=== PATIENT | female | born 2005 | race African-American/Black ===

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

== ENCOUNTER 2023-05-10 12:08 | Inpatient (IN) | payer MEDICAID ==
[~2023-05-10] VITALS: Ht 160 cm; Wt 50.0 kg
[~2023-05-10 12:08] MED LIST: NIF10C PO
[2023-05-10] MEDS ORDERED: IPRATROPIUM BROM 0.5 MG/2.5ML INH SOL NEB ONE (13:00)
[2023-05-10] MEDS ORDERED: ALBUTEROL SULF 2.5 MG/0.5ML(0.5%) NEB SOLN NEB ONE (13:00)
[2023-05-10] MEDS ORDERED: methylPREDNISolone SOD SUCC 125 MG/2 ML VL IV ONE ×2 (13:00→15:15)
[2023-05-10 13:22] LABS: Basophils # (auto) 0 10 ^3/uL (0-0.2); Basophils % (auto) 0.3 % (0.0-2.0); Eosinophils # (auto) 0.1 10 ^3/uL (0-0.8); Eosinophils % (auto) 0.4 % (0.0-7.0); Hematocrit 39.3 % (36.0-46.0); Hemoglobin 13.5 g/dL (12.2-16.2); Lymphocytes # (auto) 1.1 10 ^3/uL (0.4-5.4); Lymphocytes % (auto) 6.2 % (10.0-50.0); Mean Corpuscular Hemoglobin 28.7 pg (28.0-32.0); Mean Corpuscular Hgb Conc. 34.4 g/dL (32.0-36.0); Mean Corpuscular Volume 83.5 fL (80.0-100.0); Monocytes # (auto) 0.9 10 ^3/uL (0-1.3); Monocytes % (auto) 5.3 % (0.0-12.0); Neutrophils # (auto) 15.4 10 ^3/uL (1.6-8.6); Neutrophils % (auto) 87.8 % (37.0-80.0); Nucleated Red Blood Cells % 0.1 %; Red Blood Cells 4.71 10^6/uL (4.0-5.20); Red Cell Distribution Width 13.2 % (11.8-14.3); White Blood Cell 17.6 10^3/uL (4.4-10.8)
[2023-05-10 13:37] LABS: Albumin 4.2 g/dL (3.4-5.0)
[2023-05-10 13:40] LABS: BUN/Creatinine Ratio 8.6 (10.0-20.0); Bilirubin, Total 0.6 mg/dL (0.2-1.0); Total Protein 8.2 g/dL (6.4-8.2)
[2023-05-10] MEDS ORDERED: cefTRIAXone 1GM/50ML D5W 50 ML IV ONE (15:15)
[2023-05-10] MEDS ORDERED: DOCUSATE SOD 100 MG CAP PO PRN (15:45)
[2023-05-10] MEDS ORDERED: ONDANSETRON HCL 4 MG/2 ML VIAL IV PRN (15:45)
[2023-05-10] MEDS ORDERED: POTASSIUM EFFERVESENT TAB 25 MEQ PO ONE (15:45)
[2023-05-10] MEDS ORDERED: SODIUM CHLORIDE 0.9% 1,000 ML IV ONE (15:45)
[2023-05-10] MEDS ORDERED: MORPHINE SULFATE INJ 2 MG/ml SYRG IV PRN (15:45)
[2023-05-10] MEDS ORDERED: SODIUM CHLORIDE 0.9% 1,000 ML IV SCH (15:45)
[2023-05-10 16:10] VITALS: BP 122/80
[2023-05-10 16:12] LABS: INR 1.06 (0.9-1.15)
[2023-05-10 17:28] LABS: Urine Bacteria NONE SEEN /hpf (None Seen); Urine Blood Negative /uL (Negative); Urine Mucus MODERATE (None Seen); Urine Specific Gravity 1.031 (1.001-1.035); Urine WBC 1 /hpf (0 - 5)
[2023-05-10] MEDS ORDERED: IPRATROPIUM BROM 0.5 MG/2.5ML INH SOL NEB SCH ×2 (18:00)
[2023-05-10] MEDS ORDERED: LEVALBUTEROL HCL 1.25 MG/3 ML NEB NEB SCH (18:00)
== END 2023-05-10 17:10 | disposition left against medical advice (07) | DRG 141 ==
LOC: ER 12:08 → TELE 15:40
PROVIDERS: ADMIT Nurse Practitioner Family; ATTEND Nurse Practitioner Family
DX: J45.901 Unspecified asthma with (acute) exacerbation (principal); D72.829 Elevated white blood cell count, unspecified; E87.6 Hypokalemia; Z91.030 Bee allergy status; Z98.891 History of uterine scar from previous surgery
CPT/HCPCS: 36415; 71045; 80053; 81001; 84702; 85025; 85379; 85610; 94640; G0378

== ENCOUNTER 2023-09-10 14:08 | Emergency (ER) | payer MEDICAID, OTHER ==
[~2023-09-10] VITALS: Ht 160 cm; Wt 54.3 kg
[2023-09-10 15:45] VITALS: BP 98/72; PULSE 82; RESP 18; TEMP 98.5; O2SAT 98
[2023-09-10] MEDS ORDERED: predniSONE 20 MG TAB PO ONE (16:15)
[2023-09-10] MEDS ORDERED: cefTRIAXone SOD 1,000 MG VL IM ONE (16:15)
[2023-09-10] MEDS ORDERED: KETOROLAC TROMETH 30 MG/ML 1ML VIAL IM ONE (16:15)
[2023-09-10] MEDS ORDERED: KETOROLAC TROMETH 60MG/2ML VIAL IM ONE (16:30)
[2023-09-10] MEDS ORDERED: IBUP1TAB5 PO (17:02)
[2023-09-10] MEDS ORDERED: PRED20TA2 PO (17:02)
[2023-09-10] MEDS ORDERED: MET500T PO (17:02)
== END 2023-09-10 17:14 | disposition home or self-care (01) ==
LOC: ER 14:08
DX: K02.9 Dental caries, unspecified (principal); K08.89 Other specified disorders of teeth and supporting structures; J45.909 Unspecified asthma, uncomplicated; Z79.899 Other long term (current) drug therapy; Z91.030 Bee allergy status
CPT/HCPCS: 96372; 99284; J0696; J1885; J7512

== ENCOUNTER 2023-12-15 13:14 | Emergency (ER) | payer MEDICAID, OTHER ==
[~2023-12-15] VITALS: Ht 167.6 cm; Wt 51.6 kg
[~2023-12-15 13:14] MED LIST changes: +ALBUAER3 IN; +AZITTAB PO; +BENZ200C64 PO; +BENZLOZ2 MT; +DEX4T PO; +IBUP1TAB5 PO; +MET500T PO; +PRED20TA2 PO
[2023-12-15] MEDS ORDERED: SODIUM CHLORIDE 0.9% 1,000 ML IV ONE ×2 (13:45→15:00)
[2023-12-15] MEDS ORDERED: ONDANSETRON HCL 4 MG/2 ML VIAL IV ONE (13:45)
[2023-12-15 13:52] LABS: Urine Bacteria FEW /hpf (None Seen); Urine Blood Negative /uL (Negative); Urine Clarity HAZY (Clear); Urine Color Yellow (Yellow); Urine Hyaline Cast FEW /lpf (0 - 2); Urine Mucus FEW (None Seen); Urine Protein, UAD 1+ (Negative); Urine Specific Gravity 1.032 (1.001-1.035); Urine WBC 1 /hpf (0 - 5)
[2023-12-15 14:15] LABS: Basophils # (auto) 0 10 ^3/uL (0-0.2); Basophils % (auto) 0.4 % (0.0-2.0); Eosinophils # (auto) 0 10 ^3/uL (0-0.8); Eosinophils % (auto) 0.1 % (0.0-7.0); Hematocrit 37.5 % (36.0-46.0); Lymphocytes # (auto) 1.1 10 ^3/uL (0.4-5.4); Lymphocytes % (auto) 11.2 % (10.0-50.0); Mean Corpuscular Hemoglobin 28.5 pg (28.0-32.0); Mean Corpuscular Hgb Conc. 34.6 g/dL (32.0-36.0); Mean Corpuscular Volume 82.3 fL (80.0-100.0); Monocytes # (auto) 0.4 10 ^3/uL (0-1.3); Monocytes % (auto) 4.5 % (0.0-12.0); Neutrophils % (auto) 83.8 % (37.0-80.0); Red Blood Cells 4.55 10^6/uL (4.0-5.20); Red Cell Distribution Width 14.3 % (11.8-14.3); White Blood Cell 9.5 10^3/uL (4.4-10.8)
[2023-12-15 14:27] LABS: Chloride 106 mmol/L (98-107); Potassium 3.8 mmol/L (3.5-5.1); Sodium 140 mmol/L (136-145)
[2023-12-15 14:28] LABS: Anion Gap 12 (5-15); Calcium 9.8 mg/dL (8.5-10.1); Carbon Dioxide 22 mmol/L (20-30)
[2023-12-15 14:33] LABS: BUN/Creatinine Ratio 16.2 (10.0-20.0); Blood Urea Nitrogen 11 mg/dL (9-23); Glucose 74 mg/dL (74-106)
[2023-12-15] MEDS ORDERED: ZOFR4T PO (16:59)
[2023-12-15 17:04] VITALS: BP 117/74; PULSE 105; RESP 18; TEMP 97.3; O2SAT 98
== END 2023-12-15 17:02 | disposition home or self-care (01) ==
LOC: ER 13:14
DX: O21.0 Mild hyperemesis gravidarum (principal); R10.2 Pelvic and perineal pain; O34.81 Maternal care for other abnormalities of pelvic organs, first trimester; N83.202 Unspecified ovarian cyst, left side; Z3A.01 Less than 8 weeks gestation of pregnancy
CPT/HCPCS: 36415; 76801; 80048; 81001; 81025; 84702; 85025; 96361; 96374; 99285; J2405; J7030

== ENCOUNTER 2024-08-06 08:45 | Inpatient (IN) | payer MEDICAID ==
[~2024-08-06 08:45] MED LIST changes: -NIF10C PO; +NIFE10CA52 PO; +ZOFR4T PO
[2024-08-06] MEDS: LACT. RINGERS/OXYTOCIN 20UNITS 1,000 ML IV ONE (08:52)
[2024-08-06] MEDS ORDERED: miSOPROStol 100 mcg TAB ONE (08:53)
[2024-08-06] MEDS ORDERED: METHYLERGONOVINE MALEATE 0.2 MG/ML AMP IM ONE (08:54)
[2024-08-06] MEDS ORDERED: CARBOPROST TROMETHAMINE 250 MCG/1ML VIAL IM ONE (08:54)
[2024-08-06] MEDS ORDERED: LACTATED RINGER'S 1,000 ML IV SCH (09:30)
[2024-08-06] MEDS ORDERED: LIDOCAINE 2%HCL (LOCAL ANESTH.) INJ 20ML MDV IJ PRN (09:30)
[2024-08-06 09:55] LABS: Basophils # (auto) 0.1 10 ^3/uL (0-0.2); Basophils % (auto) 0.3 % (0.0-2.0); Eosinophils # (auto) 0 10 ^3/uL (0-0.8)
[2024-08-06 09:57] LABS: Eosinophils % (auto) 0.1 % (0.0-7.0); Hematocrit 33.9 % (36.0-46.0); Hemoglobin 11.3 g/dL (12.2-16.2); Lymphocytes % (auto) 5.6 % (10.0-50.0); Mean Corpuscular Hemoglobin 26.3 pg (28.0-32.0); Mean Corpuscular Hgb Conc. 33.4 g/dL (32.0-36.0); Mean Corpuscular Volume 78.6 fL (80.0-100.0); Monocytes # (auto) 0.5 10 ^3/uL (0-1.3); Monocytes % (auto) 2.8 % (0.0-12.0); Neutrophils # (auto) 15.7 10 ^3/uL (1.6-8.6); Neutrophils % (auto) 91.2 % (37.0-80.0); Platelet Count (auto) 193 10^3/uL (140-450); Red Cell Distribution Width 16.5 % (11.8-14.3); White Blood Cell 17.2 10^3/uL (4.4-10.8)
[2024-08-06 10:16] LABS: Alanine Aminotransferase 14 U/L (7-40); Albumin 4.4 g/dL (3.2-4.8); Alkaline Phosphatase 144 U/L (46-116); Anion Gap 10 (5-15); Aspartate Aminotransferase 11 U/L (13-40); Bilirubin, Total 0.5 mg/dL (0.2-1.0); Calcium 9.1 mg/dL (8.7-10.4); Carbon Dioxide 22 mmol/L (20-30); Chloride 104 mmol/L (98-107); Glucose 97 mg/dL (74-106); Potassium 3.3 mmol/L (3.5-5.1); Sodium 136 mmol/L (136-145)
[2024-08-06 10:21] LABS: INR 0.99 (0.9-1.15); Prothrombin Time 10.5 sec (9.3-11.8)
[2024-08-06 10:24] LABS: BUN/Creatinine Ratio 9.1 (10.0-20.0); Blood Urea Nitrogen < 5 mg/dL (9-23)
[2024-08-06] MEDS: WITCH HAZEL-GLYCERIN PAD TOP PRN (11:08)
[2024-08-06] MEDS: PHISODERM TOP SOLN 240ML BTL TOP PRN (11:08)
[2024-08-06] MEDS: DERMOPLAST 60ML BOTTLE TOP PRN (11:08)
[2024-08-06] MEDS: LACT. RINGERS/OXYTOCIN 20UNITS 500 ML IV ONE ×2 (11:11)
[2024-08-06] MEDS: ACETAMINOPHEN 325 MG TAB PO PRN (12:00)
[2024-08-06] MEDS: IBUPROFEN 600 MG TAB PO PRN (12:00)
[2024-08-06 15:10] VITALS: BP 109/57; PULSE 77; RESP 16; TEMP 99.3; O2SAT 98
[2024-08-06] MEDS: PRENATAL VITAMIN TAB PO SCH (15:30)
[2024-08-06] MEDS: POTASSIUM CHL 20 Meq TABLET PO ONE (15:30)
[2024-08-06 19:00] VITALS: BP 98/53; PULSE 78; RESP 18; TEMP 98.5; O2SAT 96
[2024-08-06 20:04] LABS: Urine Bacteria None Seen /hpf (None Seen)
[2024-08-06 20:19] LABS: Urine Amorphous Crystal FEW /hpf (None Seen); Urine Blood 3+ /uL (Negative); Urine Clarity Turbid (Clear); Urine Color Colorless (Yellow); Urine Mucus FEW (None Seen); Urine Protein, UAD Negative (Negative); Urine Specific Gravity 1.008 (1.001-1.035); Urine Urobilinogen Normal (Negative); Urine WBC 15 /hpf (0 - 5)
[2024-08-06 20:28] LABS: Amphetamine Screen, Urine Neg (NEGATIVE); Barbiturate Scree,Urine Neg (NEGATIVE); Benzodiazephine Screen, Urine Neg (NEGATIVE); Cocaine Screen, Urine Neg (NEGATIVE); Opiate Scree,Urine Neg (NEGATIVE); Phencyclidine Screen, Urine Neg (NEGATIVE)
[2024-08-06 20:29] LABS: Cannabinoid Screen, Urine Neg (NEGATIVE)
[2024-08-06] MEDS: DOCUSATE SOD 100 MG CAP PO SCH (22:09)
[2024-08-06 23:00] VITALS: BP 105/51; PULSE 74; RESP 18; TEMP 98.8; O2SAT 99
[2024-08-07] MEDS ORDERED: IBU600T PO (01:35)
[2024-08-07] MEDS ORDERED: ALBUAER3 IN (01:35)
[2024-08-07] MEDS ORDERED: PREN-96 PO (01:35)
[2024-08-07] MEDS ORDERED: DOCU-265 PO (01:35)
[2024-08-07 03:00] VITALS: BP 95/51; PULSE 74; RESP 16; TEMP 97.8; O2SAT 96
[2024-08-07] MEDS ORDERED: POTASSIUM CHL 20 Meq TABLET PO ONE (04:00)
[2024-08-07 07:00] VITALS: BP 126/78; PULSE 66; RESP 16; RESP 20; TEMP 96.9; O2SAT 98
[2024-08-07 07:06] LABS: RPR Non Reactive (Non Reactive)
[2024-08-07 08:10] LABS: Basophils # (auto) 0.1 10 ^3/uL (0-0.2); Eosinophils # (auto) 0.1 10 ^3/uL (0-0.8); Hemoglobin 12.1 g/dL (12.2-16.2); Monocytes # (auto) 0.8 10 ^3/uL (0-1.3)
[2024-08-07 08:11] LABS: Basophils % (auto) 0.6 % (0.0-2.0); Lymphocytes # (auto) 2.3 10 ^3/uL (0.4-5.4); Lymphocytes % (auto) 18.8 % (10.0-50.0); Mean Corpuscular Hemoglobin 26.3 pg (28.0-32.0); Mean Corpuscular Hgb Conc. 33.6 g/dL (32.0-36.0); Mean Corpuscular Volume 78.2 fL (80.0-100.0); Monocytes % (auto) 6.7 % (0.0-12.0); Neutrophils % (auto) 72.9 % (37.0-80.0); Platelet Count (auto) 244 10^3/uL (140-450); Red Cell Distribution Width 16.8 % (11.8-14.3); White Blood Cell 12.3 10^3/uL (4.4-10.8)
[2024-08-07 09:38] VITALS: TEMP 36.1
[2024-08-07 10:40] VITALS: RESP 15
[2024-08-07 14:34] VITALS: BP 109/57; PULSE 85; RESP 15; TEMP 98; O2SAT 98
[2024-08-08 21:06] LABS: Rubella Antibodies, IgG 1.16 index (Immune >0.99)
== END 2024-08-07 15:10 | disposition home or self-care (01) | DRG 560 ==
LOC: LDRP 08:45
PROVIDERS: ADMIT Obstetrics & Gynecology; ATTEND Obstetrics & Gynecology
PROC: 10E0XZZ Delivery of Products of Conception, External Approach (ICD-10-PCS; principal; 2024-08-06)
DX: O69.81X0 Labor and delivery complicated by cord around neck, without compression, not applicable or unspecified (principal); Z37.0 Single live birth; J45.909 Unspecified asthma, uncomplicated; O71.82 Other specified trauma to perineum and vulva; Z3A.39 39 weeks gestation of pregnancy; O34.218 Maternal care for other type scar from previous cesarean delivery; O42.02 Full-term premature rupture of membranes, onset of labor within 24 hours of rupture
CPT/HCPCS: 36415; 59025; 59612; 80053; 80307; 81001; 85025; 85610; 85730; 86592; 86703; 86762; 86803; 86850; 86900; 86901; 87340; 94760; 96360; 96361; 96365; 96366; G0378; J2590

== ENCOUNTER 2024-12-26 20:00 | Emergency (ER) | payer MEDICAID ==
[~2024-12-26] VITALS: Ht 160 cm; Wt 68.6 kg
[~2024-12-26 20:00] MED LIST changes: -AZITTAB PO; -BENZ200C64 PO; -BENZLOZ2 MT; -DEX4T PO; +DOCU-265 PO; +IBU600T PO; -IBUP1TAB5 PO; -MET500T PO; -NIFE10CA52 PO; -PRED20TA2 PO; +PREN-96 PO; -ZOFR4T PO
[2024-12-26 20:17] VITALS: BP 142/67; PULSE 91; RESP 16; O2SAT 95
--- NOTE | 2024-12-26 20:34 | ED.PDOC ---
GI ASSESSMENT HPI Comments 19-year-old female came to the emergency room due to abdominal pain. Patient states she has been having intermittent episodes of lower abdominal pain for the past 5 months. These abdominal pain has been recurrent, nonradiating, associated with episodes with nausea and diarrhea. Denies any urinary symptoms. Denies any possibility of Chief Complaint: Abdominal Pain Time Seen by MD: 20:32 Primary Care Provider: UNKNOWN Reviewed Notes: Nurses Notes Allergies: Coded Allergies: Bee Venom (Verified Allergy, Intermediate, 11/24/22) Home Meds Active Scripts Vit W/ Ferrous Fumara ( One Daily) Daily Tab, 1 TAB PO DAILY, #90 TAB 3 Refills Prov:LYNNE LOCKE [facility] 08/07/24 Ibuprofen Micronized (MOTRIN TABLET) 600 Mg Tb, 600 MG PO Q6HP PRN for 20 Days, #80 TAB Prov:CORNELIARADHALACHO [facility] 08/07/24 Docusate Sodium (Docusate Sodium) 100 Mg Cap, 200 MG PO HS PRN for 30 Days, #60 CAP 2 Refills Prov:DONALDOALLIERADHALACHO [facility] 08/07/24 Albuterol Sulfate (VENTOLIN MDI) 90 Mcg Ih, 1 PUFF IN Q4H, #1 INH 2 Refills As needed for cough nasal congestion shortness of breath or wheezing Prov:CORNELIARADHASUMMERFERNANDO [facility] 08/07/24 Information Source: Patient Mode of Arrival: Ambulatory Timing: Months Duration: Intermittent Prehospital treatment: None Quality: Aching Vomitus: None Stool: Loose Severity: Moderate Recent: None Recent Hx of: None Pain Location: Suprapubic Modifying Factors: Nothing Associated sign and symptoms: Nausea, Diarrhea, Abdominal Pain Past Medical History PAST MEDICAL HISTORY: Asthma Surgical History: PROGRESSIVE CARE NURSE History: Denies all PROGRESSIVE CARE NURSE Hx Family History Family History: Reviewed,noncontributory to illness Social History Smoker: Non-Smoker Alcohol: Denies ETOH Use Drugs: Denies Drug Use Lives In: Home EENTM: denies: blurred vision, double vision, ear bleeding, ear discharge, ear drainage, ear pain, ear ringing, eye pain, eye redness, hearing loss, mouth pain, mouth swelling, nasal discharge, nose bleeding, nose congestion, nose pain, photophobia, tearing, throat pain, throat swelling, voice changes, others Respiratory: denies: cough, hemoptysis, orthopnea, SOB at rest, shortness of breath, SOB with excertion, stridor, wheezing, others Cardiovascular: denies: chest pain, dizzy spells, diaphoresis, Dyspnea on exertion, edema, irregular heart beat, left arm pain, lightheadedness, palpitations, PND, syncope, others Gastrointestinal: reports: abdominal pain, diarrhea, nausea; denies: abdomen distended, blood streaked bowels, constipated, dysphagia, difficulty swallowing, hematemesis, melena, poor appetite, poor fluid intake, rectal bleeding, rectal pain, vomiting, others Genitourinary: denies: abnormal vagina bleeding, burning, dyspareunia, dysuria, flank pain, frequency, hematuria, incontinence, pain, , vagina discharge, urgency, others Neurological: denies: dizziness, fainting, headache, left sided numbness, left sided weakness, numbness, paresthesia, pre-existing deficit, right sided numbness, right sided weakness, seizure, speech problems, tingling, tremors, weakness, others Musculoskeletal: denies: back pain, gout, joint pain, joint swelling, muscle pain, muscle stiffness, neck pain, others Integumetry: denies: bruises, change in color, change in hair/nails, dryness, laceration, lesions, lumps, rash, wounds, others Allergic/Immunocompromised: denies: Difficulty Healing, Frequent Infections, Hives, Itching, others Hematologic/Lymphatic: denies: anemia, blood clots, easy bleeding, easy bruising, swollen glands, others Endocrine: denies: excessive hunger, excessive sweating, excessive thirst, excessive urination, flushing, intolerance to cold, intolerance to heat, unexplained weight gain, unexplained weight loss, others Psychiatric: denies: anxiety, bipolar disorder, depression, hopeless, panic disorder, schizophrenia, sleepless, suicidal, others Physical Exam General Appearance: No Apparent Distress, Normal HEENT: Normal ENT Inspection, Pharynx Normal, TMs Normal Neck: Full Range of Motion, Non-Tender, Normal, Normal Inspection Respiratory: Chest Non-Tender, Lungs Clear, No Accessory Muscle Use, No Respiratory Distress, Normal Breath Sounds Cardiovascular: No Edema, No JVD, No Murmur, No Gallop, Normal Peripheral Pulses, Regular Rate/Rhythm Breast Exam: Deferred Gastrointestinal: No Organomegaly, No Pulsatile Mass, Normal Bowel Sounds, Soft, Suprapubic, Tenderness Genitalia: Deferred Pelvic: Deferred Rectal: Deferred Extremities: No calf tenderness, Normal capillary refill, Normal inspection, Normal range of motion, Non-tender, No pedal edema Musculoskeletal : Apperance: Normal Neurologic: Alert, foreign agent II-XII nml as Tested, No Motor Deficits, Normal Affect, Normal Mood, No Sensory Deficits Cerebellar Function: Normal Reflexes: Normal Skin: Dry, Normal Color, Warm Lymphatic: No Adenopathy Was a procedure done? Was a procedure done?: No GI differential Dx Differential Diagnosis: Constipation, Diverticular disease, Gastritis/PUD, Gastroenteritis, Hernia, Ovarian cyst/torsion, Pancreatitis, PID, UTI, Urolithiasis X-Ray, Labs, Meds, VS Vital Signs Date Time Temp Pulse Resp B/P (MAP) Pulse Ox O2 Delivery O2 Flow Rate FiO2 12/26/24 20:17 98.4 91 16 142/67 (92) 95 Lab Test 12/26/24 20:33 12/26/24 20:23 Range/Units Urine Color Yellow Yellow Urine Clarity Clear Clear Urine pH 5.5 5.0-9.0 Urine Specific [place] 1.030 1.001-1.035 Urine Protein Trace H Negative Urine Ketones 2+ H Negative Urine Blood 2+ H Negative /uL Urine Nitrite Negative Negative Urine Bilirubin Negative Negative Urine Urobilinogen Normal Negative mg/dL Urine Leukocyte Esterase Negative Negative /uL Urine RBC 2 0 - 4 /hpf Urine Microscopic WBC 1 0-5 /HPF Urine Squamous Epithelial Cells Few <5 /hpf Urine Bacteria None seen None Seen /hpf Urine Mucus Few None Seen Urine Glucose Normal Normal mg/dL Urine Test Negative Negative White Blood Count 10.6 4.4-10.8 10^3/uL Red Blood Count 5.16 4.0-5.20 10^6/uL Hemoglobin 14.4 12.2-16.2 g/dL Hematocrit 41.8 36.0-46.0 % Mean Corpuscular Volume 80.9 80.0-100.0 fL Mean Corpuscular Hemoglobin 27.8 L 28.0-32.0 pg Mean Corpuscular Hemoglobin Concent 34.4 32.0-36.0 g/dL Red Cell Distribution Width 14.3 11.8-14.3 % Platelet Count 312 140-450 10^3/uL Mean Platelet Volume 7.6 6.9-10.8 fL Neutrophils (%) (Auto) 68.1 37.0-80.0 % Lymphocytes (%) (Auto) 22.8 10.0-50.0 % Monocytes (%) (Auto) 5.7 0.0-12.0 % Eosinophils (%) (Auto) 2.7 0.0-7.0 % Basophils (%) (Auto) 0.7 0.0-2.0 % Neutrophils # (Auto) 7.2 1.6-8.6 10 ^3/uL Lymphocytes # (Auto) 2.4 0.4-5.4 10 ^3/uL Monocytes # (Auto) 0.6 0-1.3 10 ^3/uL Eosinophils # (Auto) 0.3 0-0.8 10 ^3/uL Basophils # (Auto) 0.1 0-0.2 10 ^3/uL Nucleated Red Blood Cells 0.0 % Sodium Level 141 136-145 mmol/L Potassium Level 3.6 3.5-5.1 mmol/L Chloride Level 108 H 98-107 mmol/L Carbon Dioxide Level 24 20-31 mmol/L Anion Gap 9 5-15 Blood Urea Nitrogen 9 9-23 mg/dL Creatinine 0.80 0.550-1.02 mg/dL Glomerular Filtration Rate Calc 107 >90 mL/min BUN/Creatinine Ratio 11.3 10.0-20.0 Serum Glucose 80 74-106 mg/dL Calcium Level 10.4 8.7-10.4 mg/dL Time of 1ST Reevaluation: 20:29 Reevaluation 1ST: Unchanged Patient Education/Counseling: Diagnosis, Treatment Family Education/Counseling: No Family Present Departure 1 Departure Time of Disposition: 03:04 (Patient presenting with the acute abdominal pain. Labs were benign. CT was ordered however patient eloped.) Impression: Primary Impression: Lower abdominal pain Disposition: LEFT AWOL/ELOPED Condition: Serious Critical Care Note Critical Care Time?: No Stability Stability form required: No Heart Score Heart Score: Heart Score Response (Comments) Value History N/A 0 EKG N/A 0 Age N/A 0 Risk Factors N/A 0 Troponin N/A 0 Total 0 I personally scribed for ANA GAUTHIER MD ([email or web address]) on 12/26/24 at 20:33. Electronically submitted by Rico Iraheta ([facility]). ANA GAUTHIER MD Dec 26, 2024 20:33
[2024-12-26 20:35] LABS: Urine Bacteria None Seen /hpf (None Seen)
[2024-12-26 20:43] LABS: Basophils # (auto) 0.1 10 ^3/uL (0-0.2); Basophils % (auto) 0.7 % (0.0-2.0); Eosinophils # (auto) 0.3 10 ^3/uL (0-0.8); Eosinophils % (auto) 2.7 % (0.0-7.0); Hematocrit 41.8 % (36.0-46.0); Hemoglobin 14.4 g/dL (12.2-16.2); Lymphocytes # (auto) 2.4 10 ^3/uL (0.4-5.4); Lymphocytes % (auto) 22.8 % (10.0-50.0); Mean Corpuscular Hemoglobin 27.8 pg (28.0-32.0); Mean Corpuscular Hgb Conc. 34.4 g/dL (32.0-36.0); Mean Corpuscular Volume 80.9 fL (80.0-100.0); Monocytes # (auto) 0.6 10 ^3/uL (0-1.3); Monocytes % (auto) 5.7 % (0.0-12.0); Neutrophils # (auto) 7.2 10 ^3/uL (1.6-8.6); Neutrophils % (auto) 68.1 % (37.0-80.0); Platelet Count (auto) 312 10^3/uL (140-450); Red Blood Cells 5.16 10^6/uL (4.0-5.20); Red Cell Distribution Width 14.3 % (11.8-14.3); White Blood Cell 10.6 10^3/uL (4.4-10.8)
[2024-12-26 20:46] LABS: Urine Blood 2+ /uL (Negative); Urine Clarity Clear (Clear); Urine Color Yellow (Yellow); Urine Mucus FEW (None Seen); Urine Protein, UAD TRACE (Negative); Urine Squamous Epithelial Cell FEW /hpf (<5); Urine Urobilinogen Normal (Negative); Urine WBC 1 /HPF (0-5); Urine pH 5.5 (5.0-9.0)
[2024-12-26 20:57] LABS: Potassium 3.6 mmol/L (3.5-5.1); Sodium 141 mmol/L (136-145)
[2024-12-26 20:58] LABS: Anion Gap 9 (5-15); Calcium 10.4 mg/dL (8.7-10.4); Carbon Dioxide 24 mmol/L (20-31)
[2024-12-26 21:03] LABS: BUN/Creatinine Ratio 11.3 (10.0-20.0); Glucose 80 mg/dL (74-106)
[2024-12-26 21:47] LABS: Blood Urea Nitrogen 9 mg/dL (9-23); Chloride 108 mmol/L (98-107)
== END 2024-12-27 03:05 | disposition left against medical advice (07) ==
LOC: ER 20:00
DX: R10.30 Lower abdominal pain, unspecified (principal); J45.909 Unspecified asthma, uncomplicated; Z32.02 Encounter for pregnancy test, result negative; Z98.890 Other specified postprocedural states; Z91.030 Bee allergy status; Z79.899 Other long term (current) drug therapy
CPT/HCPCS: 36415; 80048; 81001; 81025; 85025

== ENCOUNTER 2025-01-12 14:11 | Inpatient (IN) | payer MEDICAID ==
[~2025-01-12] VITALS: Ht 160 cm; Wt 69.1 kg
--- NOTE | 2025-01-12 14:55 | ED.PDOC ---
GI ASSESSMENT HPI Comments 19 y.o female presents to the ED for a chief complaint of diffuse abdominal pain x 5 months associated with bloody diarrhea, vaginal spotting and rectal bleeding x 1 month. Patient reports pain is constant, presents with nausea, and is worse on the epigastric region and on deep inspiration. Patient also described bloody diarrhea as a red/brown coloration with no blood clots present and has increased episodes after eating. Patient is on Depo control and received her injection one month ago. No vaginal discharge or foul odor reported, just spotting, states menstrual cycles are heavy and regular but last one on 12/04/24 lasted one day and had minimal bleeding. Patient denies any vomiting, fever, chills. Patient has family history of IBS/IBD and cholecystectomy. Chief Complaint: Abdominal Pain Time Seen by MD: 14:42 Primary Care Provider: UNKNOWN Reviewed Notes: Nurses Notes, Medications, Allergies Allergies: Coded Allergies: Bee Venom (Verified Allergy, Intermediate, 11/24/22) Home Meds Active Scripts Vit W/ Ferrous Fumara ( One Daily) Daily Tab, 1 TAB PO DAILY, #90 TAB 3 Refills Prov:CORNELIARADHALACHO [facility] 08/07/24 Ibuprofen Micronized (MOTRIN TABLET) 600 Mg Tb, 600 MG PO Q6HP PRN for 20 Days, #80 TAB Prov:LYNNE LOCKE [facility] 08/07/24 Docusate Sodium (Docusate Sodium) 100 Mg Cap, 200 MG PO HS PRN for 30 Days, #60 CAP 2 Refills Prov:LYNNE LOCKE [facility] 08/07/24 Albuterol Sulfate (VENTOLIN MDI) 90 Mcg Ih, 1 PUFF IN Q4H, #1 INH 2 Refills As needed for cough nasal congestion shortness of breath or wheezing Prov:DONALDOALLIERADHALACHO [facility] 08/07/24 Information Source: Patient Mode of Arrival: Ambulatory Timing: Months (5) Duration: Since onset Vomitus: None Stool: Blood Streaked, Loose Severity: Moderate Recent: None Recent Hx of: None Pain Location: Diffuse Modifying Factors: Nothing Associated sign and symptoms: Nausea, Diarrhea, Abdominal Pain, Blood in Stool Past Medical History PAST MEDICAL HISTORY: Asthma Surgical History: DIE TRIMMER History: Denies all DIE TRIMMER Hx Family History Family History: Reviewed,noncontributory to illness Social History Smoker: Non-Smoker Alcohol: Denies ETOH Use Drugs: Denies Drug Use Lives In: Home Constitutional: denies: chills, diaphoresis, fatigue, fever, malaise, sweats, weakness, others EENTM: denies: blurred vision, double vision, ear bleeding, ear discharge, ear drainage, ear pain, ear ringing, eye pain, eye redness, hearing loss, mouth pain, mouth swelling, nasal discharge, nose bleeding, nose congestion, nose pain, photophobia, tearing, throat pain, throat swelling, voice changes, others Respiratory: reports: shortness of breath; denies: cough, hemoptysis, orthopnea, SOB at rest, SOB with excertion, stridor, wheezing, others Cardiovascular: denies: chest pain, dizzy spells, diaphoresis, Dyspnea on exertion, edema, irregular heart beat, left arm pain, lightheadedness, palpitations, PND, syncope, others Gastrointestinal: reports: abdominal pain, diarrhea, nausea, rectal bleeding; denies: abdomen distended, blood streaked bowels, constipated, dysphagia, difficulty swallowing, hematemesis, melena, poor appetite, poor fluid intake, rectal pain, vomiting, others Genitourinary: reports: abnormal vagina bleeding; denies: burning, dyspareunia, dysuria, flank pain, frequency, hematuria, incontinence, pain, , vagina discharge, urgency, others Neurological: denies: dizziness, fainting, headache, left sided numbness, left sided weakness, numbness, paresthesia, pre-existing deficit, right sided numbness, right sided weakness, seizure, speech problems, tingling, tremors, weakness, others Musculoskeletal: denies: back pain, gout, joint pain, joint swelling, muscle pain, muscle stiffness, neck pain, others Integumetry: denies: bruises, change in color, change in hair/nails, dryness, laceration, lesions, lumps, rash, wounds, others Allergic/Immunocompromised: denies: Difficulty Healing, Frequent Infections, Hives, Itching, others Hematologic/Lymphatic: denies: anemia, blood clots, easy bleeding, easy bru ising, swollen glands, others Endocrine: denies: excessive hunger, excessive sweating, excessive thirst, e xcessive urination, flushing, intolerance to cold, intolerance to heat, unexplained weight gain, unexplained weight loss, others Psychiatric: denies: anxiety, bipolar disorder, depression, hopeless, panic disorder, schizophrenia, sleepless, suicidal, others All Other Systems: Reviewed and Negative Physical Exam General Appearance: No Apparent Distress HEENT: Other (Moist mucous membranes) Neck: Full Range of Motion, Normal Inspection Respiratory: Lungs Clear, No Accessory Muscle Use, No Respiratory Distress, Normal Breath Sounds Cardiovascular: No Edema, No JVD, Regular Rate/Rhythm Breast Exam: Deferred Gastrointestinal: Diffuse, Epigastric, Soft, Tenderness, Other (Diffuse ten derness to palpation, greatest in the epigastrium. No rebound or guarding.) Genitalia: Deferred Pelvic: Deferred Rectal: Deferred Extremities: Normal inspection, Normal range of motion, Non-tender, No pedal edema Neurologic: Alert (Oriented x4), Normal Affect, Normal Mood, Other (Ambulatory without difficulty. No gross focal deficit.) Cerebellar Function: NOT DONE Reflexes: NOT DONE Skin: Dry, Normal Color, Warm Lymphatic: NOT DONE EKG EKG : Comments Sinus rhythm, rate 78, normal intervals, normal axis, occasional PACs, inferior and lateral T-wave inversion Was a procedure done? Was a procedure done?: No GI differential Dx Differential Diagnosis: Diverticular disease, Dysmenorrhea, Ectopic , Esophagitis, Gastritis/PUD, Gastroenteritis, GI hemorrhage, Hepatitis, Inflammatory BD, Ischemic Bowel, Pancreatitis, UTI, Dehydration, Electrolyte Imbalance, , Bacterial, Hypovolemia, Anemia, Stress Ulcer X-Ray, Labs, Meds, VS Vital Signs Date Time Temp Pulse Resp B/P (MAP) Pulse Ox O2 Delivery O2 Flow Rate FiO2 01/12/25 14:29 78 01/12/25 14:26 97.8 68 16 118/64 (82) 99 Lab Test 01/12/25 15:54 01/12/25 15:03 01/12/25 14:57 Range/Units Troponin I High Sensitivity < 3 L < 3 L </=34 ng/L Urine Color Yellow Yellow Urine Clarity Clear Clear Urine pH 6.5 5.0-9.0 Urine Specific [place] 1.032 1.001-1.035 Urine Protein Trace H Negative Urine Ketones Trace Negative Urine Blood 1+ H Negative /uL Urine Nitrite Negative Negative Urine Bilirubin Negative Negative Urine Urobilinogen 2 H Negative mg/dL Urine Leukocyte Esterase 1+ Negative /uL Urine RBC 2 0 - 4 /hpf Urine Microscopic WBC 2 0-5 /HPF Urine Squamous Epithelial Cells Mod <5 /hpf Urine Bacteria None seen None Seen /hpf Urine Mucus Few None Seen Urine Glucose Normal Normal mg/dL White Blood Count 8.5 4.4-10.8 10^3/uL Red Blood Count 5.28 H 4.0-5.20 10^6/uL Hemoglobin 14.6 12.2-16.2 g/dL Hematocrit 42.5 36.0-46.0 % Mean Corpuscular Volume 80.6 80.0-100.0 fL Mean Corpuscular Hemoglobin 27.7 L 28.0-32.0 pg Mean Corpuscular Hemoglobin Concent 34.4 32.0-36.0 g/dL Red Cell Distribution Width 14.4 H 11.8-14.3 % Platelet Count 339 140-450 10^3/uL Mean Platelet Volume 7.2 6.9-10.8 fL Neutrophils (%) (Auto) 64.5 37.0-80.0 % Lymphocytes (%) (Auto) 24.2 10.0-50.0 % Monocytes (%) (Auto) 5.6 0.0-12.0 % Eosinophils (%) (Auto) 4.7 0.0-7.0 % Basophils (%) (Auto) 1.0 0.0-2.0 % Neutrophils # (Auto) 5.5 1.6-8.6 10 ^3/uL Lymphocytes # (Auto) 2.1 0.4-5.4 10 ^3/uL Monocytes # (Auto) 0.5 0-1.3 10 ^3/uL Eosinophils # (Auto) 0.4 0-0.8 10 ^3/uL Basophils # (Auto) 0.1 0-0.2 10 ^3/uL Nucleated Red Blood Cells 0.1 % Sodium Level 142 136-145 mmol/L Potassium Level 3.8 3.5-5.1 mmol/L Chloride Level 107 98-107 mmol/L Carbon Dioxide Level 26 20-31 mmol/L Anion Gap 9 5-15 Blood Urea Nitrogen 12 9-23 mg/dL Creatinine 0.84 0.550-1.02 mg/dL Glomerular Filtration Rate Calc 101 >90 mL/min BUN/Creatinine Ratio 14.3 10.0-20.0 Serum Glucose 85 74-106 mg/dL Calcium Level 10.6 H 8.7-10.4 mg/dL Total Bilirubin 0.5 0.2-1.0 mg/dL Aspartate Amino Transferase (AST) 16 13-40 U/L Alanine Aminotransferase (ALT) 19 7-40 U/L Alkaline Phosphatase 82 46-116 U/L B-Type Natriuretic Peptide 3.46 0-100 pg/mL Total Protein 7.5 5.7-8.2 g/dL Albumin 5.4 H 3.2-4.8 g/dL Lipase 84 H 12-53 U/L Beta HCG, Quantitative 1.6 1.5-4.2 mIU/mL [place] [id number] Ph: [phone] DIAGNOSTIC IMAGING Diagnostic Imaging Report : [id number] Signed PATIENT: KETURAH VALLE ACCT: [id number] UNIT: [id number] : 2005 LOC: ER ROOM / BED: / AGE / SEX: 19 / F ADM STATUS: REG ER SERVICE 1451 ORDERING PHYSICIAN: DANN ECHEVARRIA MD PROCEDURE(s): ABPL - CT AB PEL WO CON-NO ORAL OR IV REASON: epig and generalized abd pain, bloody diarrhea ORDER NUMBER(s): [id number], ACCESSION NUMBER(s): [id number] Exam: CT CT AB PEL WO CON-NO ORAL OR IV History: epig and generalized abd pain, bloody diarrhea Comparison Study: None Technique: Multidetector spiral CT of the abdomen was performed from lung bases to pubic symphysis. Imaging was performed without IV contrast. Axial, coronal and sagittal multiplanar reformats were obtained from the axial data set by the technologist. Radiation Dose : 1. Abdomen/Pelvis: CTDIvol 8.7 mGy, DLP 451.19 mGy*cm. Findings: Evaluation of solid organs is limited due to lack of intravenous contrast use. Lung Bases: No acute or significant lung base finding. Normal heart size. No pleural or pericardial effusion. Liver: The liver is normal in size. No focal lesions. Gallbladder and Biliary Tree: Unremarkable Spleen: Unremarkable Pancreas: The pancreas is grossly normal in appearance. Adrenal Glands: Unremarkable Kidneys: Kidneys are grossly normal without calculi or hydronephrosis. Bladder: Grossly unremarkable for degree of distention. Bowel: Distended stomach. Moderate volume colonic stool. Normal appendix is visualized in the right lower quadrant without findings of appendicitis. Ascites: Absent Lymphadenopathy: No mesenteric, retroperitoneal or periportal lymphadenopathy. Abdominal Wall and Mesentery: Unremarkable. Vasculature: The visualized abdominal aorta is normal in size and caliber. Evaluation of abdominal and pelvic vessels is limited due to lack of intravenous contrast. Pelvic Organs: Unremarkable Musculoskeletal: No aggressive focal bony lesions, acute fractures or dislocation. IMPRESSION: Distended stomach. Moderate volume colonic stool. Radiation optimization: All CT scans at this facility use at least one of these dose optimization techniques: automated exposure control mA and/or kV adjustment per patient size (includes targeted exams where dose is matched to clinical indication) or iterative reconstruction. ATED BY: PETERSON LACEY MD DICTATED DATE/TIME: 01/12/251614 SIGNED BY: PETERSON LACEY MD SIGNED DATE/TIME: 01/12/251614 CC: [place] [id number] Ph: [phone] DIAGNOSTIC IMAGING Diagnostic Imaging Report : [id number] Signed PATIENT: KETURAH VALLE ACCT: [id number] UNIT: [id number] : 2005 LOC: ER ROOM / BED: / AGE / SEX: 19 / F ADM STATUS: REG ER SERVICE 1454 ORDERING PHYSICIAN: DANN ECHEVARRIA MD PROCEDURE(s): CXR1 - CHEST XRAY 1 VIEW REASON: chest pain ORDER NUMBER(s): [id number], ACCESSION NUMBER(s): [id number] CHEST RADIOGRAPH Indication: chest pain Technique: Single frontal view of the chest was obtained COMPARISON: XY CHEST XRAY 1 VIEW on DOS: 09/17/23, XY CHEST PORTABLE on DOS: 05/10/23 FINDINGS: Lines and Tubes: None Lungs: Clear Pleura: No effusion. No pneumothorax. Cardiomediastinal contours: Unremarkable Bones: Unremarkable IMPRESSION: No acute disease. ATED BY: PETERSON LACEY MD DICTATED DATE/TIME: 01/12/25 1606 SIGNED BY: PETERSON LACEY MD SIGNED DATE/TIME: 01/12/25 1606 CC: X-Ray, Labs, Meds, VS Comment 19-year-old female with no significant past medical history complaining of abdominal pain this is in the epigastrium, associated with bloody diarrhea Vitals unremarkable Exam remarkable for diffuse abdominal tenderness, greatest in the epigastrium Rhythm strip independently interpreted by me: Sinus rhythm, rate 78, PACs, no PVCs Chest x-ray IMPRESSION: No acute disease. CT abdomen and pelvis: IMPRESSION: Distended stomach. Moderate volume colonic stool. CBC and metabolic panel unremarkable, BNP and troponins negative, UA abnormal which may reflect mild UTI, lipase elevated at 84 Patient treated with the following in the ED: 1 L 0.9 normal saline IV bolus, morphine 4 mg IV, Zofran 4 mg IV, Protonix 40 mg IV, Rocephin 1 g IV On re-evaluation, patient states pain has improved, vitals were stable. Plan is to admit the patient for pain control and GI evaluation. Time of 1ST Reevaluation: 14:54 Reevaluation 1ST: Unchanged Patient Education/Counseling: Diagnosis, Treatment, Prognosis Family Education/Counseling: No Family Present Departure 1 Departure Time of Disposition: 17:32 Impression: Primary Impression: Acute pancreatitis Qualified Codes: K85.90 - Acute pancreatitis without necrosis or infection, unspecified Additional Impressions: GI bleeding Qualified Codes: K92.2 - Gastrointestinal hemorrhage, unspecified Urinary tract infection Qualified Codes: N39.0 - Urinary tract infection, site not specified Disposition: 09 ADMITTED INPATIENT Admit to: Med Surg Condition: Guarded Critical Care Note Critical Care Time?: No I personally scribed for DANN ECHEVARRIA MD ([facility]) on 01/12/25 at 14:55. Electronically submitted by Patricia Olivo ([facility]). I personally scribed for DANN ECHEVARRIA MD ([facility]) on 01/12/25 at 16:46. Electronically submitted by Patricia Olivo ([facility]). DANN ECHEVARRIA MD Jan 12, 2025 14:55
[2025-01-12 15:03] LABS: Basophils # (auto) 0.1 10 ^3/uL (0-0.2); Eosinophils # (auto) 0.4 10 ^3/uL (0-0.8); Eosinophils % (auto) 4.7 % (0.0-7.0); Hematocrit 42.5 % (36.0-46.0); Hemoglobin 14.6 g/dL (12.2-16.2); Lymphocytes # (auto) 2.1 10 ^3/uL (0.4-5.4); Lymphocytes % (auto) 24.2 % (10.0-50.0); Mean Corpuscular Hemoglobin 27.7 pg (28.0-32.0); Mean Corpuscular Hgb Conc. 34.4 g/dL (32.0-36.0); Mean Corpuscular Volume 80.6 fL (80.0-100.0); Monocytes # (auto) 0.5 10 ^3/uL (0-1.3); Monocytes % (auto) 5.6 % (0.0-12.0); Neutrophils # (auto) 5.5 10 ^3/uL (1.6-8.6); Neutrophils % (auto) 64.5 % (37.0-80.0); Nucleated Red Blood Cells % 0.1 %; Platelet Count (auto) 339 10^3/uL (140-450); Red Blood Cells 5.28 10^6/uL (4.0-5.20); Red Cell Distribution Width 14.4 % (11.8-14.3); White Blood Cell 8.5 10^3/uL (4.4-10.8)
[2025-01-12 15:05] LABS: Urine Bacteria None Seen /hpf (None Seen)
[2025-01-12 15:14] LABS: Urine Blood 1+ /uL (Negative); Urine Clarity Clear (Clear); Urine Color Yellow (Yellow); Urine Mucus FEW (None Seen); Urine Protein, UAD TRACE (Negative); Urine Specific Gravity 1.032 (1.001-1.035); Urine Squamous Epithelial Cell MOD /hpf (<5); Urine Urobilinogen 2 mg/dL (Negative); Urine WBC 2 /HPF (0-5); Urine pH 6.5 (5.0-9.0)
[2025-01-12 15:30] LABS: Alanine Aminotransferase 19 U/L (7-40); Alkaline Phosphatase 82 U/L (46-116); Anion Gap 9 (5-15); Aspartate Aminotransferase 16 U/L (13-40); BUN/Creatinine Ratio 14.3 (10.0-20.0); Blood Urea Nitrogen 12 mg/dL (9-23); Carbon Dioxide 26 mmol/L (20-31); Chloride 107 mmol/L (98-107); Glucose 85 mg/dL (74-106); Potassium 3.8 mmol/L (3.5-5.1); Sodium 142 mmol/L (136-145)
[2025-01-12 15:31] LABS: Albumin 5.4 g/dL (3.2-4.8); Bilirubin, Total 0.5 mg/dL (0.2-1.0); Calcium 10.6 mg/dL (8.7-10.4); Total Protein 7.5 g/dL (5.7-8.2)
--- NOTE | 2025-01-12 16:11 | DVH ---
CHEST RADIOGRAPH Indication: chest pain Technique: Single frontal view of the chest was obtained COMPARISON: XY CHEST XRAY 1 VIEW on DOS: 09/17/23, XY CHEST PORTABLE on DOS: 05/10/23 FINDINGS: Lines and Tubes: None Lungs: Clear Pleura: No effusion. No pneumothorax. Cardiomediastinal contours: Unremarkable Bones: Unremarkable IMPRESSION: No acute disease.
--- NOTE | 2025-01-12 16:20 | DVH ---
Exam: CT CT AB PEL WO CON-NO ORAL OR IV History: epig and generalized abd pain, bloody diarrhea Comparison Study: None Technique: Multidetector spiral CT of the abdomen was performed from lung bases to pubic symphysis. Imaging was performed without IV contrast. Axial, coronal and sagittal multiplanar reformats were ob tained from the axial data set by the technologist. Radiation Dose : 1. Abdomen/Pelvis: CTDIvol 8.7 mGy, DLP 451.19 mGy*cm. Findings: Evaluation of solid organs is limited due to lack of intravenous contrast use. Lung Bases: No acute or significant lung base finding. Normal heart size. No pleural or pericardial effusion. Liver: The liver is normal in size. No focal lesions. Gallbladder and Biliary Tree: Unremarkable Spleen: Unremarkable Pancreas: The pancreas is grossly normal in appearance. Adrenal Glands: Unremarkable Kidneys: Kidneys are grossly normal without calculi or hydronephrosis. Bladder: Grossly unremarkable for degree of distention. Bowel: Distended stomach. Moderate volume colonic stool. Normal appendix is visualized in the right lower quadrant without findings of appendicitis. Ascites: Absent Lymphadenopathy: No mesenteric, retroperitoneal or periportal lymphadenopathy. Abdominal Wall and Mesentery: Unremarkable. Vasculature: The visualized abdominal aorta is normal in size and caliber. Evaluation of abdominal a nd pelvic vessels is limited due to lack of intravenous contrast. Pelvic Organs: Unremarkable Musculoskeletal: No aggressive focal bony lesions, acute fractures or dislocation. IMPRESSION: Distended stomach. Moderate volume colonic stool. Radiation optimization: All CT scans at this facility use at least one of these dose optimization chelsey hniques: automated exposure control mA and/or kV adjustment per patient size (includes targeted exam s where dose is matched to clinical indication) or iterative reconstruction.
[2025-01-12] MEDS: MORPHINE SULFATE 4 MG/ML SYR/VIAL IV ONE (17:56)
[2025-01-12] MEDS: ONDANSETRON HCL 4 MG/2 ML VIAL IV ONE (17:57)
[2025-01-12] MEDS: SODIUM CHLORIDE 0.9% 1,000 ML IV ONE (18:03)
[2025-01-12] MEDS: cefTRIAXone 1GM/50ML D5W 50 ML IV ONE (18:03)
[2025-01-12] MEDS: PANTOPRAZOLE 40 MG/10 ML VIAL INJ IV ONE (18:03)
[2025-01-12 18:08] VITALS: PULSE 78; RESP 16; O2SAT 99
[2025-01-12] MEDS ORDERED: NITROGLYCERIN 0.4 MG SL TAB SL PRN (21:45)
[2025-01-12] MEDS ORDERED: MORPHINE SULFATE INJ 2 MG/ml SYRG IV PRN (21:45)
[2025-01-12] MEDS ORDERED: SODIUM CHLORIDE 0.9% 1,000 ML IV SCH (21:45)
[2025-01-12] MEDS: SODIUM CHLOR 0.9% PF (SALINE LOCK) 10ML VIAL/SYR IV SCH (22:10)
[2025-01-12 23:10] LABS: Cannabinoid Screen, Urine Pos (NEGATIVE); Opiate Scree,Urine Neg (NEGATIVE)
[2025-01-12 23:11] LABS: Amphetamine Screen, Urine Neg (NEGATIVE); Barbiturate Scree,Urine Neg (NEGATIVE); Benzodiazephine Screen, Urine Neg (NEGATIVE); Cocaine Screen, Urine Neg (NEGATIVE); Phencyclidine Screen, Urine Neg (NEGATIVE)
[2025-01-13 00:34] LABS: COVID19 ANTIGEN SOFIA FIA NEGATIVE (NEGATIVE); Rapid Influenza A Negative (Negative); Rapid Influenza B Negative (Negative)
[2025-01-13] MEDS: KETOROLAC TROMETH 30 MG/ML 1ML VIAL IV PRN (01:03)
--- NOTE | 2025-01-13 01:42 | DVHHPRES ---
History of Present Illness Resident Creating Document: JEEVAN SHANNON RESIDENT History of Present Illness Caprice Cooper is a 19-year-old female with a PMH of asthma presented to the ED with the chief complaints of abdominal pain, alternating constipation diarrhea associated with the bloody stools for past 5 months. The patient reports experiencing diffuse abdominal pain for the past 5 months, which is constant and associated with nausea. The pain is worse in the epigastric region and on deep inspiration. She has had intermittent bloody diarrhea with a red/brown coloration. She also reports vaginal spotting and rectal bleeding for the past month. The patient is on Depo control and received her injection one month ago. She reports no vaginal discharge or foul odor, just spotting. Her menstrual cycles are usually heavy and regular, but the last one on 12/04/24 lasted only one day with minimal bleeding. She denies any vomiting, fever, or chills. PMH: Asthma PSH: c section Family history: IBS in other Social history: Lives with family. Denies smoking, alcohol and other drug abuse Allergies: Bee venom Home medications: Albuterol inhaler Review of Systems Constitutional: No: Fever, Chills, Sweats, Weakness, Malaise, Other Eyes: No: Pain, Vision change, Conjunctivae inflammation, Eyelid inflammation, Other, Redness Respiratory: No: Cough, Dry, Shortness of breath, SOB with excertion, Wheezing, Hemoptysis, Pleuritic Pain, Sputum, Wheezing, Other Cardiovascular: No: Chest Pain, Palpitations, Orthopnea, Paroxysmal Noc. Dyspnea, Edema, Lt Headedness, Other Gastrointestinal: Nausea, Abdominal Pain, Diarrhea, Constipation, Hematochezia Genitourinary: No Dysuria, No Frequency, No Incontinence, No Hematuria, No Retention, No Other Musculoskeletal: No: other, neck pain, shoulder pain, arm pain, back pain, hand pain, leg pain, foot pain Skin: No: Rash, Lesions, Jaundice, Bruising, Other Neurological: No: Weakness, Numbness, Incoordination, Change in speech, Confusion, Seizures, Other Allergies: Coded Allergies: Bee Venom (Verified Allergy, Intermediate, 11/24/22) Medications Current Medications Medications Dose Ordered Sig/Bakari Route Start Time Stop Time Status Last Admin Dose Admin Sodium Chloride 10 ml Q8HR IV 01/12/25 22:00 01/12/25 22:10 10 ML Sodium Chloride 1,000 ml @ 60 mls/hr [id number] IV 01/12/25 21:45 Ondansetron HCl 4 mg Q4HP PRN IV 01/12/25 21:45 Acetaminophen 650 mg Q6HP PRN PO 01/12/25 21:45 Nitroglycerin 0.4 mg Q5MINP PRN SL 01/12/25 21:45 Morphine Sulfate 2 mg Q30M PRN IV 01/12/25 21:45 Pantoprazole Sodium 40 mg DAILY IV 01/13/25 10:00 Ketorolac Tromethamine 15 mg Q6HPRN PRN IV 01/13/25 00:45 01/18/25 00:44 Exam Vital Signs Vital Signs Date Time Temp Pulse Resp B/P (MAP) Pulse Ox O2 Delivery O2 Flow Rate FiO2 01/12/25 23:46 97.2 68 16 118/64 (82) 99 97.2 01/12/25 18:08 Room Air* 0 21 Exam Pt is lying on bed General Appearance: Alert, Oriented X3, Cooperative, Not in acute distress HEENT: Atraumatic, Mucous membranes moist/pink Respiratory: Clear to auscultation, Normal air movement, No added sounds Cardiovascular: Regular rate, Normal S1, Normal S2, No murmurs Abdominal: Active bowel sounds, Soft, no distention, no tenderness Extremities: No edema, Normal pulses, No tenderness/swelling Skin: No Significant rash, except past surgical scars Neuro: Normal speech, sensorimotor deficits none Psych/Mental Status: Mental status NL, Mood NL Nurse was there as sharperone during examination Labs/Xrays Labs Test 01/12/25 23:52 01/12/25 22:57 01/12/25 15:54 01/12/25 15:03 Range/Units Influenza Type A Antigen Negative Negative Influenza Type B Antigen Negative Negative SARS-CoV-2 Antigen (Rapid) Negative NEGATIVE Hemoglobin A1c 4.9 <5.7 % A1C Ammonia 13 11-32 umol/L Thyroid Stimulating Hormone (TSH) 1.69 0.55-4.78 uIU/mL Plasma/Serum Blood Alcohol < 3.0 <10 mg/dL Troponin I High Sensitivity < 3 L </=34 ng/L Urine Color Yellow Yellow Urine Clarity Clear Clear Urine pH 6.5 5.0-9.0 Urine Specific [place] 1.032 1.001-1.035 Urine Protein Trace H Negative Urine Ketones Trace Negative Urine Blood 1+ H Negative /uL Urine Nitrite Negative Negative Urine Bilirubin Negative Negative Urine Urobilinogen 2 H Negative mg/dL Urine Leukocyte Esterase 1+ Negative /uL Urine RBC 2 0 - 4 /hpf Urine Microscopic WBC 2 0-5 /HPF Urine Squamous Epithelial Cells Mod <5 /hpf Urine Bacteria None seen None Seen /hpf Urine Mucus Few None Seen Urine Glucose Normal Normal mg/dL Urine Opiates Screen Neg NEGATIVE Urine Fentanyl Screen Neg NEGATIVE Urine Barbiturates Screen Neg NEGATIVE Urine Phencyclidine Screen Neg NEGATIVE Urine Amphetamines Screen Neg NEGATIVE Urine Benzodiazepines Screen Neg NEGATIVE Urine Cocaine Screen Neg NEGATIVE Urine Cannabinoids Screen Pos NEGATIVE Test 01/12/25 14:57 Range/Units White Blood Count 8.5 4.4-10.8 10^3/uL Red Blood Count 5.28 H 4.0-5.20 10^6/uL Hemoglobin 14.6 12.2-16.2 g/dL Hematocrit 42.5 36.0-46.0 % Mean Corpuscular Volume 80.6 80.0-100.0 fL Mean Corpuscular Hemoglobin 27.7 L 28.0-32.0 pg Mean Corpuscular Hemoglobin Concent 34.4 32.0-36.0 g/dL Red Cell Distribution Width 14.4 H 11.8-14.3 % Platelet Count 339 140-450 10^3/uL Mean Platelet Volume 7.2 6.9-10.8 fL Neutrophils (%) (Auto) 64.5 37.0-80.0 % Lymphocytes (%) (Auto) 24.2 10.0-50.0 % Monocytes (%) (Auto) 5.6 0.0-12.0 % Eosinophils (%) (Auto) 4.7 0.0-7.0 % Basophils (%) (Auto) 1.0 0.0-2.0 % Neutrophils # (Auto) 5.5 1.6-8.6 10 ^3/uL Lymphocytes # (Auto) 2.1 0.4-5.4 10 ^3/uL Monocytes # (Auto) 0.5 0-1.3 10 ^3/uL Eosinophils # (Auto) 0.4 0-0.8 10 ^3/uL Basophils # (Auto) 0.1 0-0.2 10 ^3/uL Nucleated Red Blood Cells 0.1 % Sodium Level 142 136-145 mmol/L Potassium Level 3.8 3.5-5.1 mmol/L Chloride Level 107 98-107 mmol/L Carbon Dioxide Level 26 20-31 mmol/L Anion Gap 9 5-15 Blood Urea Nitrogen 12 9-23 mg/dL Creatinine 0.84 0.550-1.02 mg/dL Glomerular Filtration Rate Calc 101 >90 mL/min BUN/Creatinine Ratio 14.3 10.0-20.0 Serum Glucose 85 74-106 mg/dL Calcium Level 10.6 H 8.7-10.4 mg/dL Total Bilirubin 0.5 0.2-1.0 mg/dL Aspartate Amino Transferase (AST) 16 13-40 U/L Alanine Aminotransferase (ALT) 19 7-40 U/L Alkaline Phosphatase 82 46-116 U/L B-Type Natriuretic Peptide 3.46 0-100 pg/mL Total Protein 7.5 5.7-8.2 g/dL Albumin 5.4 H 3.2-4.8 g/dL Lipase 84 H 12-53 U/L Beta HCG, Quantitative 1.6 1.5-4.2 mIU/mL Assessment/Plan Assessment/Plan # ? inflammatory bowel disease vs IBS -ordered ESR and CRP, not elevated -CT abdominal pelvis showed distended stomach on moderate volume colonic stool # Lower GI bleed - Ordered sob - NPO for now # ? pancreatitis - IVF - NPO - pain management # Acute complicated UTI -evident on urinalysis -ordered urine culture -on Rocephin # Cannobinoid abuse disorder - counselled for more than 17 mins for cessation PUD PPX: Protonix VTE PPX: no need Diet: NPO Goals of care discussed with the patient for more than 27 minutes: Full code status Case discussed with Dr. Ellington and nurse Plan discussed with: Patient My Orders Orders - JEEVAN SHANNON RESIDENT Procedure Category Date Status Time Admit ADMIT 01/12/25 Transmitted 21:44 Allergies JASON 01/12/25 In Process 21:44 Code Status CODE 01/12/25 Transmitted 21:44 Sodium Chloride Lock PHA 01/12/25 In Process (Saline Lock Ns) 22:00 Ondansetron Hcl PHA 01/12/25 In Process (Zofran) 21:45 Complete Blood Count LAB 01/13/25 Logged 04:00 Comprehensive LAB 01/13/25 Logged Metabolic Panel 04:00 Cardiac DIET 01/13/25 Transmitted Diet-2gna,Lofat,Lochol Breakfast Condition: Stable JASON 01/12/25 In Process 21:44 Acetaminophen Tablet PHA 01/12/25 In Process (Tylenol Tablet) 21:45 Nitroglycerin PHA 01/12/25 In Process Sublingual (Ntrostat 21:45 Morphine Sulfate PHA 01/12/25 In Process Injection 21:45 Oxygen By Nasal RT 01/12/25 Transmitted Cannula 21:44 Stat Ekg For Chest JASON 01/12/25 In Process Pain 21:44 Notify Md Of Changes JASON 01/12/25 In Process From Base 21:44 Emergency Dysrhythmia JASON 01/12/25 In Process Protocol 21:44 Rhythm Strips Once JASON 01/12/25 In Process Every Shift 21:44 Urine Bacterial LJ 01/12/25 In Process Culture 22:39 Pantoprazole PHA 01/13/25 In Process (Protonix) 10:00 Ketorolac Injection PHA 01/13/25 In Process (Toradol Injection) 00:45 Erythrocyte LAB 01/13/25 Logged Sedimentation Rate 01:29 * Gi Dvh Epitaxial Reactor Operator CONS 01/13/25 Transmitted 01:29 Stool Bacterial LJ 01/13/25 Uncollected Culture 01:29 Stool Occult Blood LAB 01/13/25 Logged 01:29 Stool Wbc LAB 01/13/25 Logged 01:29 Ph Stool LAB 01/13/25 Logged 01:29 Clostridium Difficile LJ 01/13/25 Uncollected Toxin 01:29 C-Reactive Protein LAB 01/13/25 Logged 04:00 Sodium Chloride 0.9% PHA 01/13/25 In Process 01:45 Ceftriaxone 1gm/50ml PHA 01/13/25 Logged D5w (Rocephin) 09:00 Date of Service: Jan 12, 2025 Billing Provider: LORY ELLINGTON MD Common Visit Codes: [id number] INP/OBS CARE (HIGH) JEEVAN SHANNON RESIDENT Jan 13, 2025 01:42 LORY ELLINGTON MD Jan 13, 2025 14:11
[2025-01-13] MEDS: SODIUM CHLORIDE 0.9% 1,000 ML IV SCH (02:07)
[2025-01-13 02:12] VITALS: BP 107/70; PULSE 72; PULSE 86; RESP 17; TEMP 98.1; O2SAT 100; O2SAT 94
[2025-01-13 04:06] LABS: Basophils # (auto) 0.1 10 ^3/uL (0-0.2); Basophils % (auto) 0.9 % (0.0-2.0); Eosinophils # (auto) 0.5 10 ^3/uL (0-0.8); Eosinophils % (auto) 6.1 % (0.0-7.0); Hematocrit 40.5 % (36.0-46.0); Hemoglobin 13.8 g/dL (12.2-16.2); Lymphocytes # (auto) 2.4 10 ^3/uL (0.4-5.4); Lymphocytes % (auto) 32.3 % (10.0-50.0); Mean Corpuscular Hemoglobin 27.7 pg (28.0-32.0); Mean Corpuscular Hgb Conc. 34.1 g/dL (32.0-36.0); Mean Corpuscular Volume 81.3 fL (80.0-100.0); Monocytes # (auto) 0.5 10 ^3/uL (0-1.3); Monocytes % (auto) 7.1 % (0.0-12.0); Neutrophils % (auto) 53.6 % (37.0-80.0); Platelet Count (auto) 283 10^3/uL (140-450); Red Blood Cells 4.98 10^6/uL (4.0-5.20); White Blood Cell 7.5 10^3/uL (4.4-10.8)
[2025-01-13 04:20] LABS: Alanine Aminotransferase 14 U/L (7-40); Albumin 4.7 g/dL (3.2-4.8); Alkaline Phosphatase 71 U/L (46-116); Anion Gap 8 (5-15); Aspartate Aminotransferase 13 U/L (13-40); BUN/Creatinine Ratio 11.7 (10.0-20.0); Bilirubin, Total 0.5 mg/dL (0.2-1.0); Blood Urea Nitrogen 9 mg/dL (9-23); CRP High Sensitivity 0.13 mg/dL (<1.0); Calcium 9.6 mg/dL (8.7-10.4); Carbon Dioxide 22 mmol/L (20-31); Chloride 110 mmol/L (98-107); Glucose 84 mg/dL (74-106); Potassium 3.6 mmol/L (3.5-5.1); Sodium 140 mmol/L (136-145); Total Protein 6.8 g/dL (5.7-8.2)
[2025-01-13 04:36] LABS: Erythrocyte Sedimentation Rate 9 mm/hr (0-20)
[2025-01-13 05:00] VITALS: BP 104/59; PULSE 66; RESP 19; TEMP 98.4; O2SAT 95
[2025-01-13] MEDS: ONDANSETRON HCL 4 MG/2 ML VIAL IV PRN (06:57)
[2025-01-13 08:00] VITALS: PULSE 78; RESP 16; O2SAT 96
--- NOTE | 2025-01-13 08:17 | ECG ---
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
[2025-01-13 08:51] VITALS: BP 103/67; PULSE 61; RESP 16; TEMP 98.2; O2SAT 100
--- NOTE | 2025-01-13 11:14 | DVH ---
INDICATION: AUB TECHNIQUE: Multiple real-time grayscale transabdominal sonographic images along with color and duplex Doppler of the uterus and ovaries were obtained. COMPARISON: None FINDINGS: The uterus measures 8.3 x 4.1 x 5.4 cm. The endometrial stripe measures 0.4 cm. The right ovary measures 3.0 x 2.5 x 2.4 cm. The left ovary measures 3.0 x 2.3 x 1.9 cm. Subsequent color and duplex Doppler interrogation of the ovaries demonstrated symmetric vascular flow to both ovaries, though this does not exclude the possibility of torsion due to the dual blood suppl y. IMPRESSION: 1. Grossly unremarkable pelvic ultrasound.
[2025-01-13] MEDS: SUCRALFATE 1 GM/10 ML ORAL SUSP PO SCH (11:38)
[2025-01-13] MEDS: cefTRIAXone 1GM/50ML D5W 50 ML IV SCH (11:38)
[2025-01-13] MEDS: PANTOPRAZOLE 40 MG/10 ML VIAL INJ IV SCH (11:39)
--- NOTE | 2025-01-13 12:36 | DVHINCON2 ---
GI Consult Consult Note GI consult note Date of Consultation: 01/13/2025 Chief Complaint: Bloody stool and abdominal pain for five months Referring Physician: Dr. Willett H&P: 19-year-old female presented to ER with complains of abdominal pain Patient also has complains of alternating constipation and diarrhea associated bloody stool for five months Patient describes abdominal pain as sharp epigastric pain. Has GERD symptoms. Does not use any medications Patient's symptoms started after giving vaginal Patient has up to seven bowel movements every day, loose stool. With red blood in stool also No EGD or colonoscopy in past Patient uses marijuana Past Medical History: Asthma Past Surgical History: Social History: NO smoking, drinking ETOH and use of illegal drugs. Family History: Noncontributory Review of Systems: Constitutional: no fever, chill, weight loss HEENT: no eye pain, no hearing loss, no oral lesion, no scleral icterus Heart: no chest pain, no chest pressure Lung: no cough, no dyspnea with exertion Abdomen: see HPI Physical exam: General: NAD, AAOX3 Chest: lung gaitan clear to auscultation Heart: RRR, no murmur Abdomen: [id number] epigastric tenderness to palpation, +BS Labs: Labs Test 01/13/25 10:50 01/13/25 03:33 01/12/25 23:52 01/12/25 22:57 Range/Units White Blood Count 7.5 4.4-10.8 10^3/uL Red Blood Count 4.98 4.0-5.20 10^6/uL Hemoglobin 13.8 12.2-16.2 g/dL Hematocrit 40.5 36.0-46.0 % Mean Corpuscular Volume 81.3 80.0-100.0 fL Mean Corpuscular Hemoglobin 27.7 L 28.0-32.0 pg Mean Corpuscular Hemoglobin Concent 34.1 32.0-36.0 g/dL Red Cell Distribution Width 14.0 11.8-14.3 % Platelet Count 283 140-450 10^3/uL Mean Platelet Volume 7.6 6.9-10.8 fL Neutrophils (%) (Auto) 53.6 37.0-80.0 % Lymphocytes (%) (Auto) 32.3 10.0-50.0 % Monocytes (%) (Auto) 7.1 0.0-12.0 % Eosinophils (%) (Auto) 6.1 0.0-7.0 % Basophils (%) (Auto) 0.9 0.0-2.0 % Neutrophils # (Auto) 4.0 1.6-8.6 10 ^3/uL Lymphocytes # (Auto) 2.4 0.4-5.4 10 ^3/uL Monocytes # (Auto) 0.5 0-1.3 10 ^3/uL Eosinophils # (Auto) 0.5 0-0.8 10 ^3/uL Basophils # (Auto) 0.1 0-0.2 10 ^3/uL Nucleated Red Blood Cells 0.0 % Erythrocyte Sedimentation Rate 9 0-20 mm/hr Sodium Level 140 136-145 mmol/L Potassium Level 3.6 3.5-5.1 mmol/L Chloride Level 110 H 98-107 mmol/L Carbon Dioxide Level 22 20-31 mmol/L Anion Gap 8 5-15 Blood Urea Nitrogen 9 9-23 mg/dL Creatinine 0.77 0.550-1.02 mg/dL Glomerular Filtration Rate Calc 112 >90 mL/min BUN/Creatinine Ratio 11.7 10.0-20.0 Serum Glucose 84 74-106 mg/dL Calcium Level 9.6 8.7-10.4 mg/dL Total Bilirubin 0.5 0.2-1.0 mg/dL Aspartate Amino Transferase (AST) 13 13-40 U/L Alanine Aminotransferase (ALT) 14 7-40 U/L Alkaline Phosphatase 71 46-116 U/L C-Reactive Protein High Sensitivity 0.13 <1.0 mg/dL Total Protein 6.8 5.7-8.2 g/dL Albumin 4.7 3.2-4.8 g/dL Influenza Type A Antigen Negative Negative Influenza Type B Antigen Negative Negative SARS-CoV-2 Antigen (Rapid) Negative NEGATIVE Hemoglobin A1c 4.9 <5.7 % A1C Ammonia 13 11-32 umol/L Thyroid Stimulating Hormone (TSH) 1.69 0.55-4.78 uIU/mL Plasma/Serum Blood Alcohol < 3.0 <10 mg/dL Test 01/12/25 15:54 01/12/25 15:03 01/12/25 14:57 Range/Units Troponin I High Sensitivity < 3 L </=34 ng/L Urine Color Yellow Yellow Urine Clarity Clear Clear Urine pH 6.5 5.0-9.0 Urine Specific [place] 1.032 1.001-1.035 Urine Protein Trace H Negative Urine Ketones Trace Negative Urine Blood 1+ H Negative /uL Urine Nitrite Negative Negative Urine Bilirubin Negative Negative Urine Urobilinogen 2 H Negative mg/dL Urine Leukocyte Esterase 1+ Negative /uL Urine RBC 2 0 - 4 /hpf Urine Microscopic WBC 2 0-5 /HPF Urine Squamous Epithelial Cells Mod <5 /hpf Urine Bacteria None seen None Seen /hpf Urine Mucus Few None Seen Urine Glucose Normal Normal mg/dL Urine Opiates Screen Neg NEGATIVE Urine Fentanyl Screen Neg NEGATIVE Urine Barbiturates Screen Neg NEGATIVE Urine Phencyclidine Screen Neg NEGATIVE Urine Amphetamines Screen Neg NEGATIVE Urine Benzodiazepines Screen Neg NEGATIVE Urine Cocaine Screen Neg NEGATIVE Urine Cannabinoids Screen Pos NEGATIVE B-Type Natriuretic Peptide 3.46 0-100 pg/mL Lipase 84 H 12-53 U/L Beta HCG, Quantitative 1.6 1.5-4.2 mIU/mL Imaging: CT abdomen pelvis IMPRESSION: Distended stomach. Moderate volume colonic stool. Assessment: Acute abdominal pain GI bleed GERD pancreatitis Marijuana use Plan: Discussed with Dr. Fuentes - Pt will be scheduled for an EGD tomorrow 01/14/2025. Pt was informed of the risks (bleeding, infection, perforation, reaction to sedation medications and cardiopulmonary arrest) and benefit and is agreeable to undergo the procedures. Monitor labs MiraLax Protonix Clear liquid diet Discussed plan with patient and RN Thank you for this consult Date of Service: Jan 13, 2025 Billing Provider: KARON CONNELLY Common Visit Codes: CONSULT ONLY Consultation Codes: [id number] CONSULT <60MIN KARON CONNELLY Jan 13, 2025 12:36
[2025-01-13] MEDS: POLYETHYLENE GLYCOL 17 GM PWDR PO ONE (14:58)
--- NOTE | 2025-01-13 15:40 | DVHPNRES ---
Progress Note Date Seen: Jan 13, 2025 Resident Creating Document: PATRICE HELMS RESIDENT Medical Necessity Reason Pt with a Central, PICC or Fol: No Subjective Review of Systems This is a 19-year-old female with PMHx of asthma, PSHx of 2 sections, who presents to the ER with a chief complaint of epigastric abdominal pain and altered bowel movement for the past 5 months along with continuous spotting for the past month. She reports epigastric abdominal pain which is sharp, present for 5 months, relieves on ibuprofen which she takes 800 mg twice daily. Pain does not radiate and is unrelated to food. She has been having diarrhea on most of the days for the past 5 months, which is watery, mucoid, not foul smelling, sometimes bloody maroonish. Also reports unintentional weight loss. Denies fever /chills or joint pain. Also reports alternating constipation but mostly diarrhea predominant. Patient also says that she experiences chest burn symptoms for the past 2 weeks. Her menses were regular prior to 1 month, for the past month she has been having continue spotting. Patient is on Depo Medrol Oxy progesterone with was injected last month, she started on this in September last year. PMH: Asthma PSH: c section Family history: IBS in other Social history: Lives with family. Denies smoking, alcohol and other drug abuse Allergies: Bee venom Home medications: Albuterol inhaler Patient seen and examined at the bedside. Diffuse abdominal tenderness but abdomen is soft, hypoactive. Objective vital signs Vital Sign Date Time Temp Pulse Resp B/P (MAP) Pulse Ox O2 Delivery O2 Flow Rate FiO2 01/13/25 08:51 98.2 61 16 103/67 (79) 100 98.2 01/13/25 02:12 Room Air* 0 21 Total Intake and Output 01/12/25 01/12/25 01/13/25 15:00 23:00 07:00 Intake Total 1050 ml 200 ml Balance 1050 ml 200 ml medications Current Medications Medications Dose Ordered Sig/Bakari Route Start Time Stop Time Status Last Admin Dose Admin Sodium Chloride 10 ml Q8HR IV 01/12/25 22:00 01/13/25 14:59 10 ML Ondansetron HCl 4 mg Q4HP PRN IV 01/12/25 21:45 01/13/25 06:57 4 MG Acetaminophen 650 mg Q6HP PRN PO 01/12/25 21:45 Pantoprazole Sodium 40 mg DAILY IV 01/13/25 10:00 01/13/25 11:39 40 MG Ketorolac Tromethamine 15 mg Q6HPRN PRN IV 01/13/25 00:45 01/18/25 00:44 01/13/25 01:03 15 MG Sodium Chloride 1,000 ml @ 100 mls/hr Q10H IV 01/13/25 01:45 01/13/25 11:39 100 MLS/HR Ceftriaxone Sodium 50 ml @ 100 mls/hr DAILY@09 IV 01/13/25 09:00 01/13/25 11:38 100 MLS/HR Sucralfate 1 gm QID@0600,1130,1700,2200 PO 01/13/25 11:30 01/13/25 11:38 1 GM Examination Patient lying in bed, in no acute distress General: Well-built, afebrile, palor, mucosae are moist Cardiovascular: Regular S1 and S2. No murmurs, gallops or rubs. No JVD elevation. No pedal edema Respiratory: Normal B/L air entry on room air. Clear lung sounds on auscultation Abdomen: Diffuse abdominal tenderness with abdomen is soft, hypoactive bowel movements Genitourinary: Deferred MSK/skin: Mobilizes 4 limbs. Skin is dry and warm Neurological: No motor, no sensitive deficits, normal speech. Pupils are isocoric and reactive. Psych/Mental Status: A/Ox3 laboratory and microbiology Laboratory Tests 01/13/25 03:33 Test 01/13/25 03:33 Range/Units Serum Glucose 84 74-106 mg/dL Problem List/Assessment/Plan Problem List/Assessment/Plan Likely inflammatory bowel syndrome Likely peptic ulcer disease -CT abdominal pelvis showed distended stomach on moderate volume colonic stool - ESR CRP unremarkable - GI consulted, EGD scheduled for 01/14 - patient advised to stop NSAIDs/aspirin/ibuprofen/Motrin - pantoprazole IV daily along with Carafate started -1 dose of MiraLax ordered Abnormal uterine bleeding - pelvic ultrasound unremarkable - outpatient workup advised Acute complicated cystitis - Continue Rocephin 1 g IV daily Pancreatitis ruled out Cannabis use dependence - counseled regarding cessation for more than 24 minutes Diet: Clear liquid diet, NPO starting midnight Goals of care discussed with the patient for more than 26 minutes, full code status Plan discussed with patient in which all questions have been answered Case discussed with Dr. Hoff Plan discussed with: Patient My Orders My Orders Orders - PATRICE HELMS Procedure Category Date Status Time Ova & Parasite Exam LJ 01/13/25 Uncollected 10:26 Pelvic US 01/13/25 Resulted 10:26 Sucralfate Susp PHA 01/13/25 In Process (Carafate Susp) 11:30 Chlamydia/Gc LAB 01/13/25 In Process Amplification 10:26 Clear Liq Diet DIET 01/13/25 Transmitted Lunch Mrsa Screen LJ 01/13/25 In Process 09:50 Date of Service: Jan 13, 2025 Billing Provider: KEELEY MACIAS MD Common Visit Codes: [id number] INP/OBS CARE(HIGH) PATRICE HELMS Jan 13, 2025 15:40 KEELEY MACIAS MD Jan 21, 2025 23:01
[2025-01-13 17:00] VITALS: BP 109/51; PULSE 55; RESP 18; TEMP 98.4; O2SAT 100
[2025-01-13] MEDS: ACETAMINOPHEN 325 MG TAB PO PRN (20:08)
[2025-01-14] VITALS (8 sets, daily range): BP systolic 105–120; BP diastolic 56–72; PULSE 63–96; RESP 14–18; TEMP 98–99.1; O2SAT 97–100
[2025-01-14 05:57] LABS: Basophils # (auto) 0.1 10 ^3/uL (0-0.2); Basophils % (auto) 0.8 % (0.0-2.0); Eosinophils # (auto) 0.4 10 ^3/uL (0-0.8); Hematocrit 40.4 % (36.0-46.0); Hemoglobin 13.5 g/dL (12.2-16.2); Lymphocytes # (auto) 2.2 10 ^3/uL (0.4-5.4); Lymphocytes % (auto) 35.1 % (10.0-50.0); Mean Corpuscular Hemoglobin 27.3 pg (28.0-32.0); Mean Corpuscular Hgb Conc. 33.4 g/dL (32.0-36.0); Mean Corpuscular Volume 81.7 fL (80.0-100.0); Monocytes # (auto) 0.4 10 ^3/uL (0-1.3); Monocytes % (auto) 5.9 % (0.0-12.0); Neutrophils # (auto) 3.2 10 ^3/uL (1.6-8.6); Neutrophils % (auto) 51.2 % (37.0-80.0); Nucleated Red Blood Cells % 0.1 %; Platelet Count (auto) 267 10^3/uL (140-450); Red Blood Cells 4.94 10^6/uL (4.0-5.20); Red Cell Distribution Width 14.5 % (11.8-14.3); White Blood Cell 6.2 10^3/uL (4.4-10.8)
[2025-01-14 06:07] LABS: Calcium 9.7 mg/dL (8.7-10.4); Potassium 3.6 mmol/L (3.5-5.1); Sodium 141 mmol/L (136-145)
[2025-01-14 06:08] LABS: Anion Gap 11 (5-15); Carbon Dioxide 20 mmol/L (20-31)
[2025-01-14 06:13] LABS: BUN/Creatinine Ratio 7.6 (10.0-20.0)
[2025-01-14 06:18] LABS: Blood Urea Nitrogen 6 mg/dL (9-23); Chloride 110 mmol/L (98-107); Glucose 71 mg/dL (74-106)
--- NOTE | 2025-01-14 11:58 | DVHPNRES ---
Progress Note Date Seen: Jan 14, 2025 Resident Creating Document: PATRICE HELMS RESIDENT Medical Necessity Reason Pt with a Central, PICC or Fol: No Subjective Review of Systems This is a 19-year-old female with PMHx of asthma, PSHx of 2 sections, who presents to the ER with a chief complaint of epigastric abdominal pain and altered bowel movement for the past 5 months along with continuous spotting for the past month. She reports epigastric abdominal pain which is sharp, present for 5 months, relieves on ibuprofen which she takes 800 mg twice daily. Pain does not radiate and is unrelated to food. She has been having diarrhea on most of the days for the past 5 months, which is watery, mucoid, not foul smelling, sometimes bloody maroonish. Also reports unintentional weight loss. Denies fever /chills or joint pain. Also reports alternating constipation but mostly diarrhea predominant. Patient also says that she experiences chest burn symptoms for the past 2 weeks. Her menses were regular prior to 1 month, for the past month she has been having continue spotting. Patient is on Depo Medrol Oxy progesterone with was injected last month, she started on this in September last year. PMH: Asthma PSH: c section Family history: IBS in other Social history: Lives with family. Denies smoking, alcohol and other drug abuse Allergies: Bee venom Home medications: Albuterol inhaler Patient seen and examined at the bedside. Diffuse abdominal tenderness but abdomen is soft, hypoactive. 01/14 - examined at the bedside. No bowel movement. Passing gas, EGD scheduled today. Objective vital signs Vital Sign Date Time Temp Pulse Resp B/P (MAP) Pulse Ox O2 Delivery O2 Flow Rate FiO2 01/14/25 09:00 98.1 65 15 105/56 (72) 97 98.1 01/14/25 08:00 Room Air* 0 21 Total Intake and Output 01/13/25 01/13/25 01/14/25 15:00 23:00 07:00 Intake Total 50 ml 1300 ml 500 ml Balance 50 ml 1300 ml 500 ml medications Current Medications Medications Dose Ordered Sig/Bakari Route Start Time Stop Time Status Last Admin Dose Admin Sodium Chloride 10 ml Q8HR IV 01/12/25 22:00 01/14/25 04:54 10 ML Ondansetron HCl 4 mg Q4HP PRN IV 01/12/25 21:45 01/13/25 06:57 4 MG Acetaminophen 650 mg Q6HP PRN PO 01/12/25 21:45 01/13/25 20:08 650 MG Pantoprazole Sodium 40 mg DAILY IV 01/13/25 10:00 01/14/25 10:33 40 MG Sodium Chloride 1,000 ml @ 100 mls/hr Q10H IV 01/13/25 01:45 01/14/25 09:25 100 MLS/HR Ceftriaxone Sodium 50 ml @ 100 mls/hr DAILY@09 IV 01/13/25 09:00 01/14/25 09:24 100 MLS/HR Sucralfate 1 gm QID@0600,1130,1700,2200 PO 01/13/25 11:30 01/14/25 10:34 1 GM Examination Patient lying in bed, in no acute distress General: Well-built, afebrile, palor, mucosae are moist Cardiovascular: Regular S1 and S2. No murmurs, gallops or rubs. No JVD elevation. No pedal edema Respiratory: Normal B/L air entry on room air. Clear lung sounds on auscultation Abdomen: Diffuse abdominal tenderness with abdomen is soft, hypoactive bowel movements Genitourinary: Deferred MSK/skin: Mobilizes 4 limbs. Skin is dry and warm Neurological: No motor, no sensitive deficits, normal speech. Pupils are isocoric and reactive. Psych/Mental Status: A/Ox3 laboratory and microbiology Laboratory Tests 01/14/25 04:55 Test 01/14/25 04:55 Range/Units Serum Glucose 71 L 74-106 mg/dL Microbiology Date/Time Source Procedure Growth Status 01/12/25 15:03 Voided Urine Urine Culture - Preliminary Resulted Labs and/or images reviewed: Labs reviewed by me, Image(s) reviewed by me Problem List/Assessment/Plan Problem List/Assessment/Plan Likely inflammatory bowel syndrome Likely peptic ulcer disease -CT abdominal pelvis showed distended stomach on moderate volume colonic stool - ESR CRP unremarkable - GI consulted, EGD - patient advised to stop NSAIDs/aspirin/ibuprofen/Motrin - pantoprazole IV daily along with Carafate started -1 dose of MiraLax ordered Abnormal uterine bleeding - pelvic ultrasound unremarkable - outpatient workup advised Acute complicated cystitis - Continue Rocephin 1 g IV daily Pancreatitis ruled out Cannabis use dependence - counseled regarding cessation for more than 24 minutes Diet: Clear liquid diet Goals of care discussed with the patient for more than 26 minutes, full code status Plan discussed with patient in which all questions have been answered Case discussed with Dr. Hoff Plan discussed with: Patient My Orders My Orders Orders - PATRICE HELMS Procedure Category Date Status Time Mrsa Screen LJ 01/13/25 In Process 09:50 Date of Service: Jan 14, 2025 Billing Provider: KEELEY MACIAS MD Common Visit Codes: [id number] INP/OBS CARE(HIGH) PATRICE HELMS Jan 14, 2025 11:58 KEELEY MACIAS MD Jan 21, 2025 23:04
[2025-01-14] MEDS ORDERED: SODIUM CHLORIDE LOCK 10 ML ONE (15:38)
[2025-01-14] MEDS ORDERED: LIDOCAINE VISCOUS 2% 15ML UD ONE (15:38)
[2025-01-14] MEDS ORDERED: MIDAZOLAM HCL 5 MG/ML-1ML VIAL ONE (15:38)
[2025-01-14] MEDS ORDERED: diphenhdrAMINE HCL 50 MG/1 ML VL ONE (15:38)
[2025-01-14] MEDS ORDERED: fentaNYL CITRATE 100 MCG/2 ML VL ONE (15:39)
--- NOTE | 2025-01-14 16:00 | DVHOP2 ---
Operative Report DATE OF OPERATION: 01/14/25 PROCEDURE: Upper Endoscopy with biopsy. PREOPERATIVE INDICATION: The patient is a 19 -year-old female undergoing endoscopy for chronic epigastric pain POSTOPERATIVE DIAGNOSES: 1. Patient had a 0.5-1 cm sliding-type hiatal hernia with no significant erosive esophagitis 2. She had minimal gastritis otherwise normal examination up to the 2nd and 3rd part of the duodenum PROCEDURE PERFORMED BY: Carla Fuentes GI NURSE: Brandy SCOPE: Olympus videoendoscope. ASA CLASS: 2 PREOPERATIVE MEDICATIONS: Versed 5 mg, Fentanyl 100 mcg, Benadryl 50 mg I administered moderate sedation throughout this _7_ minutes procedure. An independent trained observer pushed medications at my direction, and monitored the patient's level of consciousness and physiological status throughout. PROCEDURE IN DETAIL: After obtaining an informed consent, the patient was placed on left lateral decubitus position. The patient was then sedated with the above medications. A bite block was placed between her teeth. The endoscope was then passed through the oropharynx, into the esophagus, and through the stomach and pylorus up to the second and third part of the duodenum. The endoscope was then withdrawn. Second and 3rd part of the duodenal and the duodenal bulb were normal. Duodenal biopsies were obtained The pre-pyloric area and antrum showed minimal gastritis. Gastric biopsies were obtained. On retroflexion the fundus cardia and angularis were normal. Patient had a strong gag reflux . The endoscope was then withdrawn into the distal esophagus where she had a 0.5-1 cm sliding-type hiatal hernia There was no erosive esophagitis in the remaining distal and proximal esophagus and oropharynx were unremarkable The patient tolerated the procedure well without difficulty. COMPLICATIONS : None SPECIMENS: Duodenal biopsies Gastric biopsies DISPOSITION: Transfer back to the floor Stable PLAN: 1. Await for biopsy result 2. Will place pt on Protonix 40 mg p.o. daily 3. Zofran 8 mg p.o. twice a day as needed for nausea 4. Carafate 1 g p.o. twice a day 5. Resume GI soft diet advance as tolerated 6. Further workup pending clinical symptoms CARLA FUENTES MD Jan 14, 2025 16:00
[2025-01-14] MEDS: POLYETHYLENE GLYCOL 17 GM PWDR PO ONE (17:57)
[2025-01-14 23:06] LABS: Chlamydia Trachomatis, NAA Negative (Negative); Neisseria gonorrhoeae, NAA Negative (Negative)
[2025-01-15 01:00] VITALS: BP 112/63; PULSE 72; RESP 19; TEMP 98.3; O2SAT 97
[2025-01-15 05:00] VITALS: BP 100/60; PULSE 61; RESP 18; TEMP 99; O2SAT 96
[2025-01-15 06:26] LABS: Potassium 3.5 mmol/L (3.5-5.1); Sodium 140 mmol/L (136-145)
[2025-01-15 06:27] LABS: Anion Gap 9 (5-15); Calcium 9.1 mg/dL (8.7-10.4); Carbon Dioxide 21 mmol/L (20-31)
[2025-01-15 06:29] LABS: Basophils # (auto) 0.1 10 ^3/uL (0-0.2); Basophils % (auto) 1.1 % (0.0-2.0); Eosinophils # (auto) 0.5 10 ^3/uL (0-0.8); Eosinophils % (auto) 8.2 % (0.0-7.0); Hematocrit 38.8 % (36.0-46.0); Hemoglobin 13.1 g/dL (12.2-16.2); Lymphocytes # (auto) 2.2 10 ^3/uL (0.4-5.4); Lymphocytes % (auto) 36.9 % (10.0-50.0); Mean Corpuscular Hemoglobin 27.1 pg (28.0-32.0); Mean Corpuscular Hgb Conc. 33.7 g/dL (32.0-36.0); Mean Corpuscular Volume 80.6 fL (80.0-100.0); Monocytes # (auto) 0.4 10 ^3/uL (0-1.3); Monocytes % (auto) 6.5 % (0.0-12.0); Neutrophils # (auto) 2.9 10 ^3/uL (1.6-8.6); Neutrophils % (auto) 47.3 % (37.0-80.0); Nucleated Red Blood Cells % 0.1 %; Platelet Count (auto) 266 10^3/uL (140-450); Red Blood Cells 4.81 10^6/uL (4.0-5.20); Red Cell Distribution Width 14.2 % (11.8-14.3); White Blood Cell 6.1 10^3/uL (4.4-10.8)
[2025-01-15 06:32] LABS: BUN/Creatinine Ratio 8.3 (10.0-20.0); Glucose 80 mg/dL (74-106)
[2025-01-15 06:37] LABS: Blood Urea Nitrogen 6 mg/dL (9-23); Chloride 110 mmol/L (98-107)
[2025-01-15 07:06] LABS: CRP High Sensitivity 0.07 mg/dL (<1.0)
[2025-01-15 08:00] VITALS: PULSE 67; RESP 18; O2SAT 100
[2025-01-15 08:34] VITALS: BP 102/61; PULSE 67; RESP 18; TEMP 98.4; O2SAT 100
[2025-01-15] MEDS: LACTULOSE 20Gm/30ML SOLN PO SCH (09:32)
[2025-01-15] MEDS: POTASSIUM EFFERVESENT TAB 25 MEQ PO ONE (12:26)
[2025-01-15 13:00] VITALS: BP 119/78; PULSE 65; RESP 14; TEMP 97.9; O2SAT 94
--- NOTE | 2025-01-15 14:12 | DVHPN2 ---
Progress Note Date Seen: Jan 15, 2025 Resident Creating Document: OLY ALMEIDA RESIDENT Medical Necessity Reason Pt with a Central, PICC or Fol: No Subjective Review of Systems Patient was seen and examined on the bedside. She is alert oriented x3. Mentioned few episodes of bowel movement since yesterday Patient underwent EGD yesterday and showed a 0.5-1 cm sliding-type hiatal hernia with no significant erosive esophagitis and had minimal gastritis otherwise normal examination up to the 2nd and 3rd part of the duodenum. Objective vital signs Vital Sign Date Time Temp Pulse Resp B/P (MAP) Pulse Ox O2 Delivery O2 Flow Rate FiO2 01/15/25 13:00 97.9 65 14 119/78 (92) 94 97.9 01/15/25 08:00 Room Air* 0 21 Total Intake and Output 01/14/25 01/14/25 01/15/25 15:00 23:00 07:00 Intake Total 50 ml 0 ml 1400 ml Output Total 0 ml Balance 50 ml 0 ml 1400 ml medications Current Medications Medications Dose Ordered Sig/Bakari Route Start Time Stop Time Status Last Admin Dose Admin Sodium Chloride 10 ml Q8HR IV 01/12/25 22:00 01/15/25 06:00 10 ML Ondansetron HCl 4 mg Q4HP PRN IV 01/12/25 21:45 01/13/25 06:57 4 MG Acetaminophen 650 mg Q6HP PRN PO 01/12/25 21:45 01/15/25 00:03 650 MG Pantoprazole Sodium 40 mg DAILY IV 01/13/25 10:00 01/15/25 09:32 40 MG Ceftriaxone Sodium 50 ml @ 100 mls/hr DAILY@09 IV 01/13/25 09:00 01/15/25 09:32 100 MLS/HR Sucralfate 1 gm QID@0600,1130,1700,2200 PO 01/13/25 11:30 01/15/25 12:26 1 GM Lactulose 30 ml DAILY PO 01/15/25 10:00 01/15/25 09:32 30 ML Examination Physical examination: General Appearance: Alert, Oriented X3, Cooperative, No acute distress HEENT: Atraumatic, PERRLA, EOMI, Mucous membrane moist/pink Respiratory: Clear to auscultation, Normal air movement Cardiovascular: Regular rate, Normal S1, Normal S2, No murmurs, no chest wall tenderness Abdominal: Normal bowel sounds, Soft, No tenderness, No hepatospenomegaly, No masses Extremities: No clubbing, No cyanosis, No edema, Normal pulses, No tenderness/swelling Skin: No rashes, No breakdown, No significant lesion Neuro: Normal gait, Normal speech, Strength at 5/5 X4 ext, Normal tone, Sensation intact, Cranial nerves 3-12 NL, Reflexes 2+ Psych/Mental Status: Mental status NL, Mood NL laboratory and microbiology Laboratory Tests 01/15/25 05:34 Test 01/15/25 05:34 Range/Units Serum Glucose 80 74-106 mg/dL Microbiology Date/Time Source Procedure Growth Status 01/13/25 09:50 Nose MRSA Screen - Final Complete 01/12/25 15:03 Voided Urine Urine Culture - Preliminary Resulted Labs and/or images reviewed: Labs reviewed by me, Image(s) reviewed by me Problem List/Assessment/Plan Problem List/Assessment/Plan Assessment: # Acute abdominal pain likely due to pancreatitis # Possible GI bleed # Possible inflammatory bowel disease. # GERD # Marijuana abuse disorder # Acute complicated cystitis Patient underwent EGD yesterday and showed a 0.5-1 cm sliding-type hiatal hernia with no significant erosive esophagitis and had minimal gastritis otherwise normal examination up to the 2nd and 3rd part of the duodenum. Plan: - Soft diet - Stool occult blood negative - Pending IBD panel - CRP normal, Stool negative for WBC - Continue protonix 40 mg po daily and Carafate 1 g p.o. b.i.d. - Continue lactulose 30 ml po daily. - continue IV antibiotic and other management as per primary - Recommended outpatient GI follow up after discharge Plan discussed with Dr. Fuentes Plan discussed with: Patient, OLY Sheehan RESIDENT Jan 15, 2025 14:12
--- NOTE | 2025-01-15 14:46 | DVHDSRES ---
Discharge Summary Date of Admission Resident Creating Document: PATRICE HELMS RESIDENT Jan 12, 2025 at 21:44 Date of Discharge: Jan 15, 2025 Labs/Diagnostic Data: Laboratory Results Test 01/15/25 05:34 01/14/25 21:51 01/13/25 10:50 01/13/25 03:33 White Blood Count 6.1 10^3/uL (4.4-10.8) Red Blood Count 4.81 10^6/uL (4.0-5.20) Hemoglobin 13.1 g/dL (12.2-16.2) Hematocrit 38.8 % (36.0-46.0) Mean Corpuscular Volume 80.6 fL (80.0-100.0) Mean Corpuscular Hemoglobin 27.1 pg (28.0-32.0) Mean Corpuscular Hemoglobin Concent 33.7 g/dL (32.0-36.0) Red Cell Distribution Width 14.2 % (11.8-14.3) Platelet Count 266 10^3/uL (140-450) Mean Platelet Volume 7.6 fL (6.9-10.8) Neutrophils (%) (Auto) 47.3 % (37.0-80.0) Lymphocytes (%) (Auto) 36.9 % (10.0-50.0) Monocytes (%) (Auto) 6.5 % (0.0-12.0) Eosinophils (%) (Auto) 8.2 % (0.0-7.0) Basophils (%) (Auto) 1.1 % (0.0-2.0) Neutrophils # (Auto) 2.9 10 ^3/uL (1.6-8.6) Lymphocytes # (Auto) 2.2 10 ^3/uL (0.4-5.4) Monocytes # (Auto) 0.4 10 ^3/uL (0-1.3) Eosinophils # (Auto) 0.5 10 ^3/uL (0-0.8) Basophils # (Auto) 0.1 10 ^3/uL (0-0.2) Nucleated Red Blood Cells 0.1 % Sodium Level 140 mmol/L (136-145) Potassium Level 3.5 mmol/L (3.5-5.1) Chloride Level 110 mmol/L (98-107) Carbon Dioxide Level 21 mmol/L (20-31) Anion Gap 9 (5-15) Blood Urea Nitrogen 6 mg/dL (9-23) Creatinine 0.72 mg/dL (0.550-1.02) Glomerular Filtration Rate Calc 122 mL/min (>90) BUN/Creatinine Ratio 8.3 (10.0-20.0) Serum Glucose 80 mg/dL (74-106) Calcium Level 9.1 mg/dL (8.7-10.4) C-Reactive Protein High Sensitivity 0.07 mg/dL (<1.0) Stool Occult Blood Negative (Negative) Stool Occult Blood Sample #3 (Negative) Stool for White Cells None seen Chlamydia trachomatis (ANNA) Negative (Negative) Neisseria gonorrhoeae (ANNA) Negative (Negative) Erythrocyte Sedimentation Rate 9 mm/hr (0-20) Total Bilirubin 0.5 mg/dL (0.2-1.0) Aspartate Amino Transferase (AST) 13 U/L (13-40) Alanine Aminotransferase (ALT) 14 U/L (7-40) Alkaline Phosphatase 71 U/L (46-116) Total Protein 6.8 g/dL (5.7-8.2) Albumin 4.7 g/dL (3.2-4.8) Test 01/12/25 23:52 01/12/25 22:57 01/12/25 15:54 01/12/25 15:03 Influenza Type A Antigen Negative (Negative) Influenza Type B Antigen Negative (Negative) SARS-CoV-2 Antigen (Rapid) Negative (NEGATIVE) Hemoglobin A1c 4.9 % A1C (<5.7) Ammonia 13 umol/L (11-32) Thyroid Stimulating Hormone (TSH) 1.69 uIU/mL (0.55-4.78) Plasma/Serum Blood Alcohol < 3.0 mg/dL (<10) Troponin I High Sensitivity < 3 ng/L (</=34) Urine Color Yellow (Yellow) Urine Clarity Clear (Clear) Urine pH 6.5 (5.0-9.0) Urine Specific [place] 1.032 (1.001-1.035) Urine Protein Trace (Negative) Urine Ketones Trace (Negative) Urine Blood 1+ /uL (Negative) Urine Nitrite Negative (Negative) Urine Bilirubin Negative (Negative) Urine Urobilinogen 2 mg/dL (Negative) Urine Leukocyte Esterase 1+ /uL (Negative) Urine RBC 2 /hpf (0 - 4) Urine Microscopic WBC 2 /HPF (0-5) Urine Squamous Epithelial Cells Mod /hpf (<5) Urine Bacteria None seen /hpf (None Seen) Urine Mucus Few (None Seen) Urine Glucose Normal mg/dL (Normal) Urine Opiates Screen Neg (NEGATIVE) Urine Fentanyl Screen Neg (NEGATIVE) Urine Barbiturates Screen Neg (NEGATIVE) Urine Phencyclidine Screen Neg (NEGATIVE) Urine Amphetamines Screen Neg (NEGATIVE) Urine Benzodiazepines Screen Neg (NEGATIVE) Urine Cocaine Screen Neg (NEGATIVE) Urine Cannabinoids Screen Pos (NEGATIVE) Test 01/12/25 14:57 B-Type Natriuretic Peptide 3.46 pg/mL (0-100) Lipase 84 U/L (12-53) Beta HCG, Quantitative 1.6 mIU/mL (1.5-4.2) Other Laboratory Tests 01/15/25 05:34 Brief Hx & Hospital Course: This is a 19-year-old female with PMHx of asthma, PSHx of 2 sections, who presents to the ER with a chief complaint of epigastric abdominal pain and altered bowel movement for the past 5 months along with continuous spotting for the past month. She reports epigastric abdominal pain which is sharp, present for 5 months, relieves on ibuprofen which she takes 800 mg twice daily. Pain does not radiate and is unrelated to food. She has been having diarrhea on most of the days for the past 5 months, which is watery, mucoid, not foul smelling, sometimes bloody maroonish. Also reports unintentional weight loss. Denies fever /chills or joint pain. Also reports alternating constipation but mostly diarrhea predominant. Patient also says that she experiences chest burn symptoms for the past 2 weeks. Her menses were regular prior to 1 month, for the past month she has been having continue spotting. Patient is on Depo Medrol Oxy progesterone with was injected last month, she started on this in September last year. During the hospitalization, CT abdominal pelvis showed distended stomach on moderate volume colonic stool, patient was started on MiraLax and lactulose. ESR CRP was unremarkable. Stool studies were negative for WBC, negative for occult blood. GI was consulted patient underwent EGD 01/14, showed minimal gastritis and 1 cm sliding hiatal hernia. Patient was started on pantoprazole p.o. daily along with Carafate q.i.d.. She was advised to stop NSAIDs/aspirin/ibuprofen/Motrin. For her abnormal uterine bleeding, pelvic ultrasound was done which was unremarkable. She was advised outpatient workup with her PCP. Patient received IV ceftriaxone 1 g daily for cystitis. Pancreas ruled out. Counseled regarding cessation of cannabis. Patient reported sharp epigastric pain along with cramping and stiffen hands for a couple of minutes, along with shortness of breaths during the hospitalization for once, vitals were stable, EKG was completed which showed sinus rhythm, consistent with previous EKG which she had on admission. The symptoms resolved itself. She does reports episodes like these which happened without triggers. She was advised outpatient workup, likely panic attack disorder. 01/15-patient is hemodynamically stable, vitally stable, has no active complaint and is therefore being discharged home with following instructions: Discharge instructions: Outpatient follow up with GI within to weeks to follow up with biopsy results and further management Outpatient follow up with primary care physician Follow up with the discharge clinic within 7 days Pantoprazole 40 mg daily before breakfast Carafate 1 g p.o. 4 times daily Discharge diagnosis: Abdominal pain secondary to GERD 0.5-1 cm sliding-type hiatal hernia Probable IBS Abnormal uterine bleeding Acute complicated cystitis Pancreatitis rule out Cannabis use dependence Consults/Reason for consult GI consulted for GERD and abdominal pain Operations or Procedures PROCEDURE: Upper Endoscopy with biopsy. PREOPERATIVE INDICATION: The patient is a 19 -year-old female undergoing endoscopy for chronic epigastric pain POSTOPERATIVE DIAGNOSES: 1. Patient had a 0.5-1 cm sliding-type hiatal hernia with no significant erosive esophagitis 2. She had minimal gastritis otherwise normal examination up to the 2nd and 3rd part of the duodenum PROCEDURE PERFORMED BY: Adeola Fuentes GI NURSE: Brandy SCOPE: Olympus videoendoscope. ASA CLASS: 2 PREOPERATIVE MEDICATIONS: Versed 5 mg, Fentanyl 100 mcg, Benadryl 50 mg I administered moderate sedation throughout this _7_ minutes procedure. An independent trained observer pushed medications at my direction, and monitored the patient's level of consciousness and physiological status throughout. PROCEDURE IN DETAIL: After obtaining an informed consent, the patient was placed on left lateral decubitus position. The patient was then sedated with the above medications. A bite block was placed between her teeth. The endoscope was then passed through the oropharynx, into the esophagus, and through the stomach and pylorus up to the second and third part of the duodenum. The endoscope was then withdrawn. Second and 3rd part of the duodenal and the duodenal bulb were normal. Duodenal biopsies were obtained The pre-pyloric area and antrum showed minimal gastritis. Gastric biopsies were obtained. On retroflexion the fundus cardia and angularis were normal. Patient had a strong gag reflux . The endoscope was then withdrawn into the distal esophagus where she had a 0.5-1 cm sliding-type hiatal hernia There was no erosive esophagitis in the remaining distal and proximal esophagus and oropharynx were unremarkable The patient tolerated the procedure well without difficulty. COMPLICATIONS : None SPECIMENS: Duodenal biopsies Gastric biopsies DISPOSITION: Transfer back to the floor Stable PLAN: 1. Await for biopsy result 2. Will place pt on Protonix 40 mg p.o. daily 3. Zofran 8 mg p.o. twice a day as needed for nausea 4. Carafate 1 g p.o. twice a day 5. Resume GI soft diet advance as tolerated 6. Further workup pending clinical symptoms Condition at Discharge: Stable Final Diagnosis/Problems List Abdominal pain secondary to GERD 0.5-1 cm sliding-type hiatal hernia Likely inflammatory bowel syndrome Abnormal uterine bleeding Likely panic attack disorder Discharge Disposition: Home Discharge Instruct/Medications Diet: Regular Diet comment: Less spicy less fatty, less fried food Activity: No Restrictions, As Tolerated Follow Up/Referral: Outpatient follow up with GI within to weeks to follow up with biopsy results and further management Outpatient follow up with primary care physician Follow up with the discharge clinic within 7 days Medications: Pantoprazole 40 mg daily before breakfast Carafate 1 g p.o. 4 times daily Tablets Zofran 8 mg p.o. twice a day as needed for nausea Discharge Statement: "Patient was advised to return to the ER or call 911 if any headaches, dizziness, shortness of breath, chest pain, abdominal pain, bleeding, fevers, or worsening of medical condition. Patient was counseled about treatment plan, medications, possible side effects, patientverbalized understanding. All questions were answered to the best of my ability. This discharge took greater then 30 minutes in planning, reviewing documentation, counseling the patient, and discussing with other team members." ASSESSMENT ASSESSMENT Assessment Abdominal pain secondary to GERD 0.5-1 cm sliding-type hiatal hernia Likely inflammatory bowel syndrome Abnormal uterine bleeding Likely panic attack disorder Date of Service: Jan 15, 2025 Billing Provider: KEELEY MACIAS MD Common Visit Codes: [id number] DISCH DAY >30min PATRICE HELMS RESIDENT Jan 15, 2025 14:46 KEELEY MACIAS MD Jan 22, 2025 00:18
[2025-01-15] MEDS ORDERED: PANT40T PO (15:06)
[2025-01-15] MEDS ORDERED: SUCR1TAB31 OR (15:06)
[2025-01-15] MEDS ORDERED: LACT10PA2 PO (15:06)
[2025-01-15] MEDS ORDERED: ZOFR4T PO (15:20)
[2025-01-15 17:00] VITALS: BP 111/71; PULSE 83; RESP 20; TEMP 98.1; O2SAT 93
[2025-01-21 12:07] LABS: Saccharomyces cerevisiae IgA 23.9 Units (0.0-24.9)
== END 2025-01-15 16:54 | disposition home or self-care (01) | DRG 243 ==
LOC: ER 14:11 → OVERFLOW 21:44 → WEST WING 01-14 14:05
PROVIDERS: ADMIT Student in an Organized Health Care Education/Training Program; ATTEND Student in an Organized Health Care Education/Training Program
PROC: 0DB68ZX Excision of Stomach, Via Natural or Artificial Opening Endoscopic, Diagnostic (ICD-10-PCS; 2025-01-14)
PROC: 0DB98ZX Excision of Duodenum, Via Natural or Artificial Opening Endoscopic, Diagnostic (ICD-10-PCS; principal; 2025-01-14 15:42)
DX: K21.9 Gastro-esophageal reflux disease without esophagitis (principal); K29.71 Gastritis, unspecified, with bleeding; F12.10 Cannabis abuse, uncomplicated; Z20.822 Contact with and (suspected) exposure to COVID-19; K58.9 Irritable bowel syndrome, unspecified; N93.9 Abnormal uterine and vaginal bleeding, unspecified; K44.9 Diaphragmatic hernia without obstruction or gangrene; N30.00 Acute cystitis without hematuria; Z79.899 Other long term (current) drug therapy
CPT/HCPCS: 36415; 43239; 71045; 74176; 76856; 80048; 80053; 80307; 80320; 81001; 82140; 82270; 83036; 83690; 83880; 83986; 84443; 84484; 84702; 85025; 85048; 85652; 86141; 86256; 86671; 87045; 87081; 87086; 87177; 87426; 87804; 93005; 96365; 96375; G0378; J1885; J2250; J2405; J2470

== ENCOUNTER 2025-01-22 00:48 | Emergency (ER) | payer MEDICAID ==
[~2025-01-22] VITALS: Ht 160 cm; Wt 64.7 kg
[~2025-01-22 00:48] MED LIST changes: -IBU600T PO; +LACT10PA2 PO; +PANT40T PO; +SUCR1TAB31 OR; +ZOFR4T PO
--- NOTE | 2025-01-22 01:48 | DVH ---
Exam: CT CT AB PEL WO CON-NO ORAL OR IV History: abd pain Comparison Study: CT CT AB PEL WO CON-NO ORAL OR IV on DOS: 01/12/25 Technique: Multidetector spiral CT of the abdomen was performed from lung bases to pubic symphysis. Imaging was performed without IV contrast. Axial, coronal and sagittal multiplanar reformats were ob tained from the axial data set by the technologist. Radiation Dose : 1. Abdomen/Pelvis: CTDIvol mGy, DLP mGy*cm. Findings: Evaluation of solid organs is limited due to lack of intravenous contrast use. Lung Bases: No abnormality demonstrated. Liver: Liver is normal in size. No focal lesions. Gallbladder and Biliary Tree: No abnormality demonstrated. Spleen: No abnormality demonstrated. Pancreas: No abnormality demonstrated. Adrenal Glands: No abnormality demonstrated. Kidneys: No abnormality demonstrated. No renal calculus or hydroureteronephrosis. Bladder: Non distended. Bowel: Stomach appears grossly unremarkable. No dilated or thick-walled loops of large or small bowel noted. Appendix appears unremarkable. Ascites: Absent Lymphadenopathy: No evidence of lymphadenopathy. Abdominal Wall and Mesentery: Unremarkable. Vasculature: Unremarkable. Pelvic Organs: Unremarkable Musculoskeletal: No bony lesions or fracture. IMPRESSION: No acute abdominal or pelvic findings. Radiation optimization: All CT scans at this facility use at least one of these dose optimization chelsey hniques: automated exposure control mA and/or kV adjustment per patient size (includes targeted exam s where dose is matched to clinical indication) or iterative reconstruction.
[2025-01-22 01:59] LABS: Alanine Aminotransferase 14 U/L (7-40); Alkaline Phosphatase 76 U/L (46-116); Anion Gap 12 (5-15); BUN/Creatinine Ratio 7.2 (10.0-20.0); Calcium 10.4 mg/dL (8.7-10.4); Carbon Dioxide 21 mmol/L (20-31); Chloride 105 mmol/L (98-107); Glucose 92 mg/dL (74-106); Sodium 138 mmol/L (136-145)
[2025-01-22 02:00] LABS: Bilirubin, Total 0.9 mg/dL (0.2-1.0); Total Protein 7.7 g/dL (5.7-8.2)
[2025-01-22 02:02] LABS: Basophils # (auto) 0 10 ^3/uL (0-0.2); Basophils % (auto) 0.3 % (0.0-2.0); Eosinophils # (auto) 0 10 ^3/uL (0-0.8); Eosinophils % (auto) 0.4 % (0.0-7.0); Hematocrit 39.9 % (36.0-46.0); Hemoglobin 13.8 g/dL (12.2-16.2); Lymphocytes # (auto) 0.7 10 ^3/uL (0.4-5.4); Lymphocytes % (auto) 5.6 % (10.0-50.0); Mean Corpuscular Hemoglobin 27.1 pg (28.0-32.0); Mean Corpuscular Hgb Conc. 34.4 g/dL (32.0-36.0); Mean Corpuscular Volume 78.8 fL (80.0-100.0); Monocytes # (auto) 0.6 10 ^3/uL (0-1.3); Monocytes % (auto) 5.2 % (0.0-12.0); Neutrophils # (auto) 10.9 10 ^3/uL (1.6-8.6); Neutrophils % (auto) 88.5 % (37.0-80.0); Platelet Count (auto) 258 10^3/uL (140-450); Red Blood Cells 5.07 10^6/uL (4.0-5.20); Red Cell Distribution Width 14.5 % (11.8-14.3); White Blood Cell 12.4 10^3/uL (4.4-10.8)
[2025-01-22 02:08] LABS: Albumin 5.3 g/dL (3.2-4.8); Aspartate Aminotransferase 11 U/L (13-40); Blood Urea Nitrogen 6 mg/dL (9-23); Potassium 3.5 mmol/L (3.5-5.1)
[2025-01-22] MEDS ORDERED: AZITTAB PO (02:27)
[2025-01-22] MEDS ORDERED: PROM1SOL4 PO (02:27)
--- NOTE | 2025-01-22 02:29 | ED.PDOC ---
GI ASSESSMENT HPI Comments 19-year-old female complaining of abdominal pain and cough. States abdominal pain started three days ago while she was coughing. Says she was recently seen at this emergency department for a hernia. Patient was states no nausea no vomiting. Nothing makes it better, coughing makes it worse. States she was not been treated for cough and congestion yet. Says she has been coughing for the last week. Chief Complaint: Abdominal Pain Time Seen by MD: 00:59 Primary Care Provider: UNKNOWN Reviewed Notes: Nurses Notes Allergies: Coded Allergies: Bee Venom (Verified Allergy, Intermediate, 11/24/22) Home Meds Active Scripts Ondansetron Odt 4MG Tab (ZOFRAN PO) 4 Mg Tb, 8 MG PO BID PRN for 30 Days, #120 TAB 0 Refills ODT TAB-DISSOLVE IN MOUTH, THEN SWALLOW Prov:ANALIAPATRICE RESIDENT 01/15/25 Lactulose (Lactulose) 10 Gm Wale, 30 GM PO PRN for 30 Days, #30 PACK 0 Refills Prov:ANALIAPATRICE RESIDENT 01/15/25 Sucralfate (CARAFATE) 1 Gm Tab, 1 GM OR QID for 30 Days, #120 TAB 0 Refills Prov:ANALIAPATRICE RESIDENT 01/15/25 Pantoprazole Sodium Sesquihydr (Pantoprazole Sodium) 40 Mg Tab, 40 MG PO DAILY for 30 Days, #30 TAB 0 Refills Prov:RAFAEL HELMSER RESIDENT 01/15/25 Vit W/ Ferrous Fumara ( One Daily) Daily Tab, 1 TAB PO DAILY, #90 TAB 3 Refills Prov:LYNNE LOCKE [facility] 08/07/24 Docusate Sodium (Docusate Sodium) 100 Mg Cap, 200 MG PO HS PRN for 30 Days, #60 CAP 2 Refills Prov:LYNNE LOCKE [facility] 08/07/24 Albuterol Sulfate (VENTOLIN MDI) 90 Mcg Ih, 1 PUFF IN Q4H, #1 INH 2 Refills As needed for cough nasal congestion shortness of breath or wheezing Prov:LYNNE LOCKE 08/07/24 Discontinued Scripts Ibuprofen Micronized (MOTRIN TABLET) 600 Mg Tb, 600 MG PO Q6HP PRN for 20 Days, #80 TAB Prov:LYNNE LOCKE 08/07/24 Information Source: Patient Mode of Arrival: Ambulatory Past Medical History PAST MEDICAL HISTORY: Asthma Surgical History: LICENSED PSYCHOLOGIST DIRECTOR History: Denies all LICENSED PSYCHOLOGIST DIRECTOR Hx Family History Family History: Reviewed,noncontributory to illness Social History Smoker: Non-Smoker Alcohol: Denies ETOH Use Drugs: Denies Drug Use Lives In: Home Constitutional: denies: chills, diaphoresis, fatigue, fever, malaise, sweats, weakness, others EENTM: denies: blurred vision, double vision, ear bleeding, ear discharge, ear drainage, ear pain, ear ringing, eye pain, eye redness, hearing loss, mouth pain, mouth swelling, nasal discharge, nose bleeding, nose congestion, nose pain, photophobia, tearing, throat pain, throat swelling, voice changes, others Respiratory: reports: cough; denies: hemoptysis, orthopnea, SOB at rest, shortness of breath, SOB with excertion, stridor, wheezing, others Cardiovascular: denies: chest pain, dizzy spells, diaphoresis, Dyspnea on exertion, edema, irregular heart beat, left arm pain, lightheadedness, palpitations, PND, syncope, others Gastrointestinal: reports: abdominal pain; denies: abdomen distended, blood streaked bowels, constipated, diarrhea, dysphagia, difficulty swallowing, hematemesis, melena, nausea, poor appetite, poor fluid intake, rectal bleeding, rectal pain, vomiting, others Genitourinary: denies: abnormal vagina bleeding, burning, dyspareunia, dysuria, flank pain, frequency, hematuria, incontinence, pain, , vagina discharge, urgency, others Neurological: denies: dizziness, fainting, headache, left sided numbness, left sided weakness, numbness, paresthesia, pre-existing deficit, right sided numbness, right sided weakness, seizure, speech problems, tingling, tremors, weakness, others Musculoskeletal: denies: back pain, gout, joint pain, joint swelling, muscle pain, muscle stiffness, neck pain, others Integumetry: denies: bruises, change in color, change in hair/nails, dryness, laceration, lesions, lumps, rash, wounds, others Allergic/Immunocompromised: denies: Difficulty Healing, Frequent Infections, Hives, Itching, others Hematologic/Lymphatic: denies: anemia, blood clots, easy bleeding, easy bruising, swollen glands, others Physical Exam General Appearance: Normal, Severe Distress HEENT: Normal ENT Inspection, Pharynx Normal, TMs Normal Neck: Full Range of Motion, Non-Tender, Normal, Normal Inspection Respiratory: Chest Non-Tender, Lungs Clear, No Accessory Muscle Use, No Respiratory Distress, Normal Breath Sounds Cardiovascular: No Edema, No JVD, No Murmur, No Gallop, Normal Peripheral Pulses, Regular Rate/Rhythm Breast Exam: Deferred Gastrointestinal: No Organomegaly, Normal Bowel Sounds, Soft, Tenderness (Diffuse epigastric abdominal tenderness) Genitalia: Deferred Pelvic: Deferred Rectal: Deferred Extremities: No calf tenderness, Normal capillary refill, Normal inspection, Normal range of motion, Non-tender, No pedal edema Musculoskeletal : Apperance: Normal Neurologic: Alert, python architect II-XII nml as Tested, No Motor Deficits, Normal Affect, Normal Mood, No Sensory Deficits Cerebellar Function: Normal Reflexes: Normal Skin: Dry, Normal Color, Warm Lymphatic: No Adenopathy Was a procedure done? Was a procedure done?: No GI differential Dx Differential Diagnosis: Appendicitis, Esophagitis, Gastritis/PUD, Gastroenteritis, GI hemorrhage, Hernia X-Ray, Labs, Meds, VS Vital Signs Date Time Temp Pulse Resp B/P (MAP) Pulse Ox O2 Delivery O2 Flow Rate FiO2 01/22/25 01:05 99.6 133 20 119/69 (86) 95 Lab Test 01/22/25 01:17 Range/Units White Blood Count 12.4 #H 4.4-10.8 10^3/uL Red Blood Count 5.07 4.0-5.20 10^6/uL Hemoglobin 13.8 12.2-16.2 g/dL Hematocrit 39.9 36.0-46.0 % Mean Corpuscular Volume 78.8 L 80.0-100.0 fL Mean Corpuscular Hemoglobin 27.1 L 28.0-32.0 pg Mean Corpuscular Hemoglobin Concent 34.4 32.0-36.0 g/dL Red Cell Distribution Width 14.5 H 11.8-14.3 % Platelet Count 258 140-450 10^3/uL Mean Platelet Volume 8.3 6.9-10.8 fL Neutrophils (%) (Auto) 88.5 H 37.0-80.0 % Lymphocytes (%) (Auto) 5.6 L 10.0-50.0 % Monocytes (%) (Auto) 5.2 0.0-12.0 % Eosinophils (%) (Auto) 0.4 0.0-7.0 % Basophils (%) (Auto) 0.3 0.0-2.0 % Neutrophils # (Auto) 10.9 H 1.6-8.6 10 ^3/uL Lymphocytes # (Auto) 0.7 0.4-5.4 10 ^3/uL Monocytes # (Auto) 0.6 0-1.3 10 ^3/uL Eosinophils # (Auto) 0 0-0.8 10 ^3/uL Basophils # (Auto) 0 0-0.2 10 ^3/uL Nucleated Red Blood Cells 0.0 % Sodium Level 138 136-145 mmol/L Potassium Level 3.5 3.5-5.1 mmol/L Chloride Level 105 98-107 mmol/L Carbon Dioxide Level 21 20-31 mmol/L Anion Gap 12 5-15 Blood Urea Nitrogen 6 L 9-23 mg/dL Creatinine 0.83 0.550-1.02 mg/dL Glomerular Filtration Rate Calc 103 >90 mL/min BUN/Creatinine Ratio 7.2 L 10.0-20.0 Serum Glucose 92 74-106 mg/dL Calcium Level 10.4 8.7-10.4 mg/dL Total Bilirubin 0.9 0.2-1.0 mg/dL Aspartate Amino Transferase (AST) 11 L 13-40 U/L Alanine Aminotransferase (ALT) 14 7-40 U/L Alkaline Phosphatase 76 46-116 U/L Total Protein 7.7 5.7-8.2 g/dL Albumin 5.3 H 3.2-4.8 g/dL X-Ray, Labs, Meds, VS Comment Imaging: X-rays and CT scans were reviewed and interpreted by this provider, imaging shows no fractures and no pathological disease. Pending radiology review. Laboratory: Labs reviewed and interpreted by this provider. No significant abnormalities noted. Patient has prior medical visits reviewed. Med reconciliation performed Vital signs reviewed Time of 1ST Reevaluation: 02:27 Reevaluation 1ST: Improved Patient Education/Counseling: Diagnosis, Treatment, Need For Follow Up (If abdominal pain worsens over the next 4-6 hours returned to the emergency department. Symptoms have not improved over the next 24 hours return to the emergency department.) Family Education/Counseling: Diagnosis Departure 1 Departure Time of Disposition: 02:25 Impression: Primary Impression: Gastritis Qualified Codes: K29.00 - Acute gastritis without bleeding Additional Impression: Upper respiratory infection Qualified Codes: J06.9 - Acute upper respiratory infection, unspecified Disposition: HOME / SELF CARE / HOMELESS Condition: Fair e-Prescriptions Azithromycin (Zithromax Z-Wale) 250 Mg Tab 250 MG PO DAILY for 5 Days, #5 TAB Prov: LISA HARMAN 01/22/25 Promethazine-Dm (Promethazine Dm 6.25-15 mg/5Ml) 1 Ruthann Ruthann 5 ML PO TID PRN, #200 ML Prov: LISA HARMAN 01/22/25 Discharged With: Self Critical Care Note Critical Care Time?: No Stability Stability form required: No Heart Score Heart Score: Heart Score Response (Comments) Value History N/A 0 EKG N/A 0 Age N/A 0 Risk Factors N/A 0 Troponin N/A 0 Total 0 LISA HARMAN Jan 22, 2025 02:29
[2025-01-22] MEDS: ALBUTEROL SULF 2.5 MG/0.5ML(0.5%) NEB SOLN NEB ONE (04:25)
[2025-01-22] MEDS: IPRATROPIUM BROM 0.5 MG/2.5ML INH SOL NEB ONE ×2 (04:25→06:23)
[2025-01-22] MEDS: methylPREDNISolone SOD SUCC 125 MG/2 ML VL IM ONE (04:28)
[2025-01-22] MEDS: KETOROLAC TROMETH 30 MG/ML 1ML VIAL IM ONE (04:29)
[2025-01-22 05:00] VITALS: BP 108/62; PULSE 135; RESP 22; TEMP 99.9; O2SAT 88
[2025-01-22] MEDS: LEVALBUTEROL HCL 1.25 MG/3 ML NEB NEB SCH (06:00)
[2025-01-22 06:22] VITALS: PULSE 109; RESP 18; O2SAT 94
== END 2025-01-22 06:24 | disposition home or self-care (01) ==
LOC: ER 00:48
DX: K29.70 Gastritis, unspecified, without bleeding (principal); J06.9 Acute upper respiratory infection, unspecified; J45.909 Unspecified asthma, uncomplicated; Z79.899 Other long term (current) drug therapy; Z91.030 Bee allergy status
CPT/HCPCS: 36415; 74176; 80053; 85025; 94640; 96372; 99285; J1885; J2919